=== PATIENT | female | born 1940 | race Caucasian/White ===

== ENCOUNTER 2021-08-13 09:12 | Inpatient (IN) ==
[2021-08-13] MEDS ORDERED: 0.9 % SODIUM CHLORIDE 1,000 ML IV ONE (09:20)
[2021-08-13] MEDS ORDERED: ACETAMINOPHEN 500 MG TABLET PO ONE (09:20)
--- NOTE | 2021-08-13 09:23 | Emergency Department Note ---
Fever HPI General Chief Complaint: Fever Stated Complaint: fever Time Seen by Provider: 08/13/21 09:19 Source: patient and EMS Mode of arrival: EMS Limitations: no limitations History of Present Illness HPI Narrative: Patient is 80-year-old lady arrives emergency department by ambulance complaining of generalized malaise. Patient says she has been feeling fatigued and rundown for the past 24 hours. She has been having nausea and vomiting. She is also been coughing and feeling short of breath. She notes that she has been having urinary frequency without any dysuria. She started feeling even more weak this morning so she called 911. Paramedics arrived and found her to be hypoxemic with oxygen saturation in the mid 80s on room air. They applied supplemental oxygen started an IV and brought her to the. Nothing seems to make her symptoms any better or worse. The patient has been fully vaccinated against COVID-19. Related Data Home Medications Medication Instructions Recorded Confirmed acetylcysteine 600 mg capsule See Rx Instructions PO .[facility] 04/28/20 04/28/20 amlodipine 10 mg tablet See Rx Instructions PO .04/28/20 04/28/20 ascorbic acid (vitamin C) 1,000 mg See Rx Instructions PO .04/28/20 04/28/20 tablet aspirin 81 mg tablet,delayed See Rx Instructions PO .04/28/20 04/28/20 release biotin 5,000 mcg disintegrating See Rx Instructions PO .04/28/20 04/28/20 tablet furosemide 40 mg tablet See Rx Instructions PO .COMPLEX 04/28/20 04/28/20 Days tab glipizide 5 mg tablet See Rx Instructions PO .04/28/20 04/28/20 Days tab losartan 50 mg tablet See Rx Instructions PO .COMPLEX 04/28/20 04/28/20 Days tab lovastatin 40 mg tablet See Rx Instructions PO .COMPLEX 04/28/20 04/28/20 Days tab metformin 1,000 mg tablet See Rx Instructions PO .04/28/20 04/28/20 Days tab metoprolol tartrate 25 mg tablet See Rx Instructions PO .COMPLEX 04/28/20 04/28/20 multivitamin See Rx Instructions PO .COMPLEX 04/28/20 04/28/20 oxybutynin chloride 15 mg See Rx Instructions PO .04/28/20 04/28/20 tablet,extended release 24 hr Days tab ranitidine HCl 300 mg tablet See Rx Instructions PO .COMPLEX 90 04/28/20 04/28/20 Days tab sertraline 100 mg tablet See Rx Instructions PO .COMPLEX 90 04/28/20 04/28/20 Days tab Lantus Solostar U-100 Insulin 22 unit INTRADERMAL QHS 08/13/21 08/13/21 Previous Rx's Medication Instructions Recorded meloxicam 7.5 mg tablet 7.5 mg PO BID PRN #60 tab 06/03/18 Allergies Allergy/AdvReac Type Severity Reaction Status Date / Time lisinopril AdvReac Intermediate Cough Verified 11/01/18 10:59 Review of Systems ROS ROS Narrative: Narrative: All systems ED: reviewed and negative except as stated. 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 use of non-steroidal anti-inflammatories (NSAID) (Chronic) Abnormal immunological finding in serum (Chronic) Left foot pain (Chronic) Carpal tunnel syndrome, right (Acute) Carpal tunnel syndrome, left (Acute) Cataract (Acute) Knee joint replacement status (Acute) Cholecystectomy planned (Acute) Actinic keratosis (Chronic) Heart murmur, systolic (Chronic) Osteoarthrosis (Chronic) Obesity (Chronic) Anemia (Chronic) Insomnia (Chronic) Chronic depression (Chronic) GERD (gastroesophageal reflux disease) (Chronic) Urge incontinence (Chronic) Hyperlipidemia (Chronic) Diabetes mellitus, type II (Chronic) Hypertension, essential (Chronic) Memory loss (Chronic) History of basal cell carcinoma (Chronic) Hemangioma (Chronic) Benign neoplasm of skin (Chronic) Scar (Chronic) Medical History Abnormal immunological finding in serum Actinic keratosis Anemia Back pain Benign neoplasm of skin Carpal tunnel syndrome, left Carpal tunnel syndrome, right Cataract Cholecystectomy planned Chronic depression Chronic pain Diabetes mellitus, type II Facet arthropathy GERD (gastroesophageal reflux disease) Heart murmur, systolic Hemangioma History of basal cell carcinoma Hyperlipidemia Hypertension, essential Insomnia 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 L3-S1 w/sed 03/25/2020 MBB #2 Antony. L3-S1 w/sed 02/26/2020 MBB #1 Bilat L3-S1 w/sed 02/05/20 Knee joint replacement status Social History Smoking Status: Never smoker Alcohol Intake Frequency: does not drink Substance Use: does not use Exam Narrative Narrative: I reviewed the vital signs. Gen -patient is awake and alert and appears somewhat uncomfortable. She is experiencing rigors.. The patient is well groomed. HEENT -head is atraumatic. There is no conjunctival pallor or scleral icterus. Mucous membranes are dry. CV -S1-S2 regular rate and rhythm. Peripheral pulses are palpable. There is no JVD. Resp -breathing is nonlabored. Lungs are clear to auscultation bilaterally. There is no cyanosis. GI - Abdomen is soft and nontender to palpation. There is no guarding or rebound tenderness. Derm -skin is warm and dry. There is no visible rash. MSK -present extremities are atraumatic. Psych -patient has appropriate affect. The patient does not appear internally stimulated. Neuro -patient answers questions appropriately with fluent speech. Patient moves all present extremities equally. General Limitations: no limitations Course Vital Signs Vital signs: Vital Signs Temperature 102.9 F H 08/13/21 09:13 Pulse Rate 110 H 08/13/21 09:13 Respiratory Rate 24 H 08/13/21 09:13 Blood Pressure 157/78 08/13/21 09:13 Pulse Oximetry (%) 94 08/13/21 09:13 Temperature 100.1 F H 08/13/21 11:55 Pulse Rate 93 H 08/13/21 12:15 Respiratory Rate 24 H 08/13/21 09:13 Blood Pressure 114/59 08/13/21 12:01 Pulse Oximetry (%) 96 08/13/21 12:15 MDM MDM Narrative Medical decision making narrative: Presents with a fever nausea and shortness of breath. Abdominal examination is not suggestive of surgical intra-abdominal pathology and the patient denies any abdominal pain. Chest x-ray does reveal bilateral interstitial infiltrates. Patient's labs remarkable for leukocytosis without significant electrolyte derangements. Her symptoms significantly impro yareli after she received antipyretics and IV fluids in the emergency department. I discussed the test results and my clinical impression with the patient and her family. Given her new oxygen requirement I recommended admission and she is agreeable. I discussed the patient's history examination and diagnostic findings with Dr. Enamorado, who agrees with the plan of care and accepts admission. Critical care time I provided 35 minutes of critical care time. This was in addition to any separately billable procedures. The patient was given supplemental oxygen to treat her hypoxemic respiratory failure. She was given IV fluids to treat her sepsis and dehydration and was given IV antibiotics to treat her pneumonia and sepsis.. The patient was closely monitored for response to treatment and stability of vital signs throughout their emergency department stay. Lab Data Lab results reviewed: Yes I reviewed the patient's lab results. Result diagrams: 08/13/21 09:33 08/13/21 09:33 Labs: Lab Results 08/13/21 08/13/21 08/13/21 Range/Units 09:33 09:33 09:33 WBC 14.9 H (4.5-11.0) K/mcL RBC 3.82 (3.59-5.38) M/mcL Hgb 11.9 (11.2-15.7) g/dL Hct 36.4 (34.1-44.9) % MCV 95.3 (80.0-100.0) fL MCH 31.2 (26.0-34.0) pg MCHC 32.7 (31.0-36.0) g/dL RDW 13.0 (11.5-14.5) % Plt Count 166 (140-440) K/mcL MPV 9.8 (7.4-10.4) fL Neut % (Auto) 91.4 H (38.0-78.0) % Lymph % (Auto) 2.7 L (15.5-49.0) % [place] % (Auto) 4.4 (1.0-12.0) % Eos % (Auto) 1.2 (0.0-7.0) % Baso % (Auto) 0.3 (0.0-2.0) % Lymph # (Auto) 0.40 L (1.50-4.80) K/mcL [place] # (Auto) 0.65 (0.10-0.90) K/mcL Eos # (Auto) 0.18 (0.00-0.70) K/mcL Baso # (Auto) 0.04 (0.00-0.30) K/mcL Absolute Neutrophils 13.65 H (1.80-8.00) K/mcL VBG Lactic Acid 1.1 (0.5-2.0) mmol/L Sodium 135 (133-145) mmol/L Potassium 4.4 (3.3-5.1) mmol/L Chloride 98 (96-108) mmol/L Carbon Dioxide 23 (22-30) mmol/L Anion Gap 14.0 (8.0-16.0) BUN 20 (8-23) mg/dL Creatinine 0.7 (0.6-1.1) mg/dL GFR Calculation 83 Glucose 166 H (70-105) mg/dL Calcium 9.9 (8.6-10.4) mg/dL Total Bilirubin 0.7 (0.1-1.0) mg/dL AST 31 (<32) U/L ALT 24 (<40) U/L Alkaline Phosphatase 111 (39-117) U/L Total Protein 7.3 (5.9-8.4) gm/dL Albumin 4.2 (3.2-5.2) gm/dL Globulin 3.1 (2.2-3.7) gm/dL Albumin/Globulin Ratio 1.4 (1.0-2.3) Urine Color Urine Appearance (Clear) Urine pH (5.0-9.0) Ur Specific Rule (1.000-1.035) Urine Protein (Negative) mg/dL Urine Glucose (UA) (Negative) mg/dL Urine Ketones (Negative) mg/dL Urine Occult Blood (Negative) mg/dL Urine Nitrate (Negative) Urine Bilirubin (Negative) mg/dL Urine Urobilinogen mg/dL Ur Leukocyte Esterase (Negative) /uL Urine RBC (0-3) /hpf Urine WBC (0-4) /hpf Ur Squamous Epith Cells (0-4) /hpf Urine Bacteria (0) /hpf Urine Mucus (None) /hpf Ur Culture Indicated? 08/13/21 Range/Units 10:24 WBC (4.5-11.0) K/mcL RBC (3.59-5.38) M/mcL Hgb (11.2-15.7) g/dL Hct (34.1-44.9) % MCV (80.0-100.0) fL MCH (26.0-34.0) pg MCHC (31.0-36.0) g/dL RDW (11.5-14.5) % Plt Count (140-440) K/mcL MPV (7.4-10.4) fL Neut % (Auto) (38.0-78.0) % Lymph % (Auto) (15.5-49.0) % [place] % (Auto) (1.0-12.0) % Eos % (Auto) (0.0-7.0) % Baso % (Auto) (0.0-2.0) % Lymph # (Auto) (1.50-4.80) K/mcL [place] # (Auto) (0.10-0.90) K/mcL Eos # (Auto) (0.00-0.70) K/mcL Baso # (Auto) (0.00-0.30) K/mcL Absolute Neutrophils (1.80-8.00) K/mcL VBG Lactic Acid (0.5-2.0) mmol/L Sodium (133-145) mmol/L Potassium (3.3-5.1) mmol/L Chloride (96-108) mmol/L Carbon Dioxide (22-30) mmol/L Anion Gap (8.0-16.0) BUN (8-23) mg/dL Creatinine (0.6-1.1) mg/dL GFR Calculation Glucose (70-105) mg/dL Calcium (8.6-10.4) mg/dL Total Bilirubin (0.1-1.0) mg/dL AST (<32) U/L ALT (<40) U/L Alkaline Phosphatase (39-117) U/L Total Protein (5.9-8.4) gm/dL Albumin (3.2-5.2) gm/dL Globulin (2.2-3.7) gm/dL Albumin/Globulin Ratio (1.0-2.3) Urine Color Straw Urine Appearance Clear (Clear) Urine pH 7.0 (5.0-9.0) Ur Specific Rule 1.009 (1.000-1.035) Urine Protein Negative (Negative) mg/dL Urine Glucose (UA) Negative (Negative) mg/dL Urine Ketones Negative (Negative) mg/dL Urine Occult Blood Negative (Negative) mg/dL Urine Nitrate Negative (Negative) Urine Bilirubin Negative (Negative) mg/dL Urine Urobilinogen Negative mg/dL Ur Leukocyte Esterase Negative (Negative) /uL Urine RBC 2 (0-3) /hpf Urine WBC 1 (0-4) /hpf Ur Squamous Epith Cells < 1 (0-4) /hpf Urine Bacteria None (0) /hpf Urine Mucus Few A (None) /hpf Ur Culture Indicated? 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: No Clinical Impression: Pneumonia, Acute hypoxemic respiratory failure Patient Disposition: Xfer As Inpt ([facility]) Condition: Fair Follow up with: Jessy Ahn MD [Primary Care Provider] - Prescriptions: No Action meloxicam 7.5 mg tablet 7.5 mg PO BID PRN (Reason: pain) Qty: 60 RF: 3 amlodipine 10 mg tablet See Rx Instructions PO .COMPLEX RF: 0 aspirin 81 mg tablet,delayed release (DR/EC) See Rx Instructions PO .COMPLEX RF: 0 biotin 5,000 mcg tablet,disintegrating See Rx Instructions PO .COMPLEX RF: 0 ascorbic acid (vitamin C) 1,000 mg tablet See Rx Instructions PO .COMPLEX RF: 0 multivitamin Tablet See Rx Instructions PO .COMPLEX RF: 0 acetylcysteine [NAC] 600 mg capsule See Rx Instructions PO .COMPLEX RF: 0 glipizide 5 mg tablet See Rx Instructions PO .COMPLEX 90 Days RF: 0 metformin 1,000 mg tablet See Rx Instructions PO .COMPLEX 90 Days RF: 0 oxybutynin chloride 15 mg tablet extended release 24hr See Rx Instructions PO .COMPLEX 90 Days RF: 0 sertraline 100 mg tablet See Rx Instructions PO .COMPLEX 90 Days RF: 0 losartan 50 mg tablet See Rx Instructions PO .COMPLEX 90 Days RF: 0 furosemide 40 mg tablet See Rx Instructions PO .COMPLEX 90 Days RF: 0 lovastatin 40 mg tablet See Rx Instructions PO .COMPLEX 90 Days RF: 0 ranitidine HCl 300 mg tablet See Rx Instructions PO .COMPLEX 90 Days RF: 0 metoprolol tartrate 25 mg tablet See Rx Instructions PO .COMPLEX RF: 0 Lantus Solostar U-100 Insulin 22 unit intradermal QHS RF: 0
--- NOTE | 2021-08-13 10:41 | XRay Report ---
INDICATION: pneumonia. Fever TECHNIQUE: AP portable upright chest x-ray COMPARISON: Previous chest x-ray dated 11/24/2017 FINDINGS:Previous median sternotomy. 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 Appearance is consistent with interstitial edema. There is no parenchymal consolidation. Heart, vascular:There is cardiomegaly. Mediastinum, zia:No mediastinal widening. No hilar mass Pleura:No definite pleural effusion identified on this AP upright radiograph Skeletal:Negative. IMPRESSION: 1. Cardiomegaly and probable interstitial pulmonary edema 2. No focal pulmonary parenchymal consolidation Interpreted and Authenticated by: Guero Orourke 08/13/21
[2021-08-13 10:47] LABS: Basophils # (Auto) 0.04 K/mcL (0.00-0.30); Basophils % (Auto) 0.3 % (0.0-2.0); Eosinophils # (Auto) 0.18 K/mcL (0.00-0.70); Eosinophils % (Auto) 1.2 % (0.0-7.0); Hematocrit 36.4 % (34.1-44.9); Hemoglobin 11.9 g/dL (11.2-15.7); Lymphocytes % (Auto) 2.7 % (15.5-49.0); Mean Cell Volume 95.3 fL (80.0-100.0); Mean Corpuscular HGB Conc 32.7 g/dL (31.0-36.0); Mean Platelet Volume 9.8 fL (7.4-10.4); Monocytes # (Auto) 0.65 K/mcL (0.10-0.90); Monocytes % (Auto) 4.4 % (1.0-12.0); Neutrophils % (Auto) 91.4 % (38.0-78.0); Platelet Count 166 K/mcL (140-440); RBC 3.82 M/mcL (3.59-5.38); WBC 14.9 K/mcL (4.5-11.0)
[2021-08-13 11:03] LABS: Appearance,Urine CLEAR (Clear); Bilirubin,Urine Negative (Negative); Color,Urine STRAW; Culture Indicated,Urine No; Glucose,Urine (UA) Negative (Negative); Ketones,Urine Negative (Negative); Leukocyte Esterase,Urine Negative /uL (Negative); Mucus,Urine FEW /hpf; Nitrate,Urine Negative (Negative); Protein,Urine Negative (Negative); Specific Gravity,Urine 1.009 (1.000-1.035); Urine Blood Negative (Negative); Urine RBC 2 /hpf (0-3); Urine Squamous Epithelial Cell < 1 /hpf (0-4); Urine WBC 1 /hpf (0-4); Urobilinogen,Urine Negative
[2021-08-13 11:04] LABS: ALT/SGPT 24 U/L (<40); AST/SGOT 31 U/L (<32); Albumin 4.2 gm/dL (3.2-5.2); Albumin/Globulin Ratio 1.4 (1.0-2.3); Alkaline Phosphatase 111 U/L (39-117); Bilirubin,Total 0.7 mg/dL (0.1-1.0); Blood Urea Nitrogen 20 mg/dL (8-23); Calcium 9.9 mg/dL (8.6-10.4); Carbon Dioxide 23 mmol/L (22-30); Chloride 98 mmol/L (96-108); Globulin 3.1 gm/dL (2.2-3.7); Glomerular Filtration Rate 83; Glucose 166 mg/dL (70-105)
[2021-08-13] MEDS ORDERED: DOXYCYCLINE 100 MG in DEXTROSE 5% IN WATER 100 ML IV ONE (11:25)
[2021-08-13] MEDS ORDERED: cefTRIAXone 1 GM VIAL IV ONE ×2 (11:25→14:30)
--- NOTE | 2021-08-13 12:53 | Internal Med History&Physical ---
HPI History of Present Illness Patient information: Note initiated : 08/13/21 at 12:48 pm Service Date, if different from initiated Date: [] Patient: Kandi Juares a 80 y/o F admitted on for fever. Chief Complaint: [] History of present illness: Ms. Juares is a 80 year old F Presents to the hospital with fevers chills weakness shortness of breath. She was found to be satting in the mid 80s by EMS. Patient is on she started developing fevers and chills becoming more weak. She denies any cough but started to feel short of breath. She had some nausea and retching today. A granddaughter she was exposed to was recently found to have RSV infection. She has been vaccinated against Covid and has received a booster several weeks ago. Review of Systems: Pertinent positives as above. Denies headache/vomiting/chest or abdominal pain/diarrhea. Remaining 10 point review of system reviewed negative PFSH PFSH All Active Problems (Updated 08/13/21 @ 12:29 by Nikhil Taylor DO) Pneumonia (Acute) Acute hypoxemic respiratory failure (Acute) History of surgery (Acute) Chronic pain (Acute) Facet arthropathy (Acute) Spinal stenosis, lumbar region without neurogenic claudication (Acute) Low back pain (Acute) Spondylosis without myelopathy or radiculopathy, lumbar region (Acute) Spondylosis without myelopathy or radiculopathy, lumbosacral region (Acute) Back pain (Acute) prison current use of non-steroidal anti-inflammatories (NSAID) (Chronic) Abnormal immunological finding in serum (Chronic) Left foot pain (Chronic) Carpal tunnel syndrome, right (Acute) Carpal tunnel syndrome, left (Acute) Cataract (Acute) Knee joint replacement status (Acute) Cholecystectomy planned (Acute) Actinic keratosis (Chronic) Heart murmur, systolic (Chronic) Osteoarthrosis (Chronic) Obesity (Chronic) Anemia (Chronic) Insomnia (Chronic) Chronic depression (Chronic) GERD (gastroesophageal reflux disease) (Chronic) Urge incontinence (Chronic) Hyperlipidemia (Chronic) Diabetes mellitus, type II (Chronic) Hypertension, essential (Chronic) Memory loss (Chronic) History of basal cell carcinoma (Chronic) Hemangioma (Chronic) Benign neoplasm of skin (Chronic) Scar (Chronic) Medical History Abnormal immunological finding in serum Actinic keratosis Anemia Back pain Benign neoplasm of skin Carpal tunnel syndrome, left Carpal tunnel syndrome, right Cataract Cholecystectomy planned Chronic depression Chronic pain Diabetes mellitus, type II Facet arthropathy GERD (gastroesophageal reflux disease) Heart murmur, systolic Hemangioma History of basal cell carcinoma Hyperlipidemia Hypertension, essential Insomnia Left foot pain prison current use of non-steroidal anti-inflammatories (NSAID) Low back pain Memory loss Obesity Osteoarthrosis Scar Spinal stenosis, 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 L3-S1 w/sed 03/25/2020 MBB #2 Antony. L3-S1 w/sed 02/26/2020 MBB #1 Bilat L3-S1 w/sed 02/05/20 Knee joint replacement status Social History (Updated 11/01/18 @ 12:09 by TOMMIE Lundberg) household members: spouse housing: house lives independently: Yes marital status: pets and animals: Yes alcohol intake frequency: does not drink substance use type: does not use MEDS/ALLERGIES Home Medications and Allergies Home Medications Medication Instructions Recorded Confirmed Type meloxicam 7.5 mg tablet 7.5 mg PO BID PRN #60 tab 06/03/18 11/01/18 Rx acetylcysteine 600 mg capsule See Rx Instructions PO .COMPLEX 04/28/20 04/28/20 History amlodipine 10 mg tablet See Rx Instructions PO .COMPLEX 04/28/20 04/28/20 History ascorbic acid (vitamin C) 1,000 mg See Rx Instructions PO .COMPLEX 04/28/20 04/28/20 History tablet aspirin 81 mg tablet,delayed See Rx Instructions PO .COMPLEX 04/28/20 04/28/20 History release biotin 5,000 mcg disintegrating See Rx Instructions PO .COMPLEX 04/28/20 04/28/20 History tablet furosemide 40 mg tablet See Rx Instructions PO .COMPLEX 90 04/28/20 04/28/20 History Days tab glipizide 5 mg tablet See Rx Instructions PO .COMPLEX 90 04/28/20 04/28/20 History Days tab losartan 50 mg tablet See Rx Instructions PO .COMPLEX 04/28/20 04/28/20 History Days tab lovastatin 40 mg tablet See Rx Instructions PO .COMPLEX 04/28/20 04/28/20 History Days tab metformin 1,000 mg tablet See Rx Instructions PO .COMPLEX 04/28/20 04/28/20 History Days tab metoprolol tartrate 25 mg tablet See Rx Instructions PO .COMPLEX 04/28/20 04/28/20 History multivitamin See Rx Instructions PO .COMPLEX 04/28/20 04/28/20 History oxybutynin chloride 15 mg See Rx Instructions PO .COMPLEX 04/28/20 04/28/20 History tablet,extended release 24 hr Days tab ranitidine HCl 300 mg tablet See Rx Instructions PO .COMPLEX 04/28/20 04/28/20 History Days tab sertraline 100 mg tablet See Rx Instructions PO .COMPLEX 04/28/20 04/28/20 History Days tab Lantus Solostar U-100 Insulin 22 unit INTRADERMAL QHS 08/13/21 08/13/21 History Allergies Allergy/AdvReac Type Severity Reaction Status Date / Time lisinopril AdvReac Intermediate Cough Verified 11/01/18 10:59 EXAM Constitutional Vitals: Temp Pulse Resp BP Pulse Ox 100.1 F H 94 H 24 H 112/60 96 08/13/21 11:55 08/13/21 12:48 08/13/21 09:13 08/13/21 12:31 08/13/21 12:48 Exam: General: Alert, Awake, No acute Distress Eyes/N/T: EOMI, PERRL, Head/Neck: neck supple, normocephalic atraumatic CV: RRR, 3/6 SM, normal s1/s2 Pulm: Fine rales b/l, no wheezing Abd: soft, nontender, +BS x4 Ext: no clubbing/cyanosis/edema Neuro: Alert, no focal deficits, moves all extremities, CN 2-12 grossly intact, symmetrical strength b/l upper/lower, sensations intact b/l upper/lower Skin: warm/dry DATA Data Completed and Pending Labs: Labs from last 24 hours 08/13/21 08/13/21 08/13/21 10:24 09:33 09:33 WBC RBC Hgb Hct MCV MCH MCHC RDW Plt Count MPV Neut % (Auto) Lymph % (Auto) [place] % (Auto) Eos % (Auto) Baso % (Auto) Lymph # (Auto) [place] # (Auto) Eos # (Auto) Baso # (Auto) Absolute Neutrophils D-Dimer VBG Lactic Acid Sodium Potassium Chloride Carbon Dioxide Anion Gap BUN Creatinine GFR Calculation Glucose Calcium Total Bilirubin AST ALT Alkaline Phosphatase C-Reactive Protein Pending NT-Pro-B Natriuret Pep Pending Total Protein Albumin Globulin Albumin/Globulin Ratio Procalcitonin Pending Urine Color Straw Urine Appearance Clear Urine pH 7.0 Ur Specific [place] 1.009 Urine Protein Negative Urine Glucose (UA) Negative Urine Ketones Negative Urine Occult Blood Negative Urine Nitrate Negative Urine Bilirubin Negative Urine Urobilinogen Negative Ur Leukocyte Esterase Negative Urine RBC 2 Urine WBC 1 Ur Squamous Epith Cells < 1 Urine Bacteria None Urine Mucus Few A Ur Culture Indicated? No 08/13/21 08/13/21 08/13/21 09:33 09:33 09:33 WBC RBC Hgb Hct MCV MCH MCHC RDW Plt Count MPV Neut % (Auto) Lymph % (Auto) [place] % (Auto) Eos % (Auto) Baso % (Auto) Lymph # (Auto) [place] # (Auto) Eos # (Auto) Baso # (Auto) Absolute Neutrophils D-Dimer Pending VBG Lactic Acid 1.1 Sodium 135 Potassium 4.4 Chloride 98 Carbon Dioxide 23 Anion Gap 14.0 BUN 20 Creatinine 0.7 GFR Calculation 83 Glucose 166 H Calcium 9.9 Total Bilirubin 0.7 AST 31 ALT 24 Alkaline Phosphatase 111 C-Reactive Protein NT-Pro-B Natriuret Pep Total Protein 7.3 Albumin 4.2 Globulin 3.1 Albumin/Globulin Ratio 1.4 Procalcitonin Urine Color Urine Appearance Urine pH Ur Specific [place] Urine Protein Urine Glucose (UA) Urine Ketones Urine Occult Blood Urine Nitrate Urine Bilirubin Urine Urobilinogen Ur Leukocyte Esterase Urine RBC Urine WBC Ur Squamous Epith Cells Urine Bacteria Urine Mucus Ur Culture Indicated? 08/13/21 09:33 WBC 14.9 H RBC 3.82 Hgb 11.9 Hct 36.4 MCV 95.3 MCH 31.2 MCHC 32.7 RDW 13.0 Plt Count 166 MPV 9.8 Neut % (Auto) 91.4 H Lymph % (Auto) 2.7 L [place] % (Auto) 4.4 Eos % (Auto) 1.2 Baso % (Auto) 0.3 Lymph # (Auto) 0.40 L [place] # (Auto) 0.65 Eos # (Auto) 0.18 Baso # (Auto) 0.04 Absolute Neutrophils 13.65 H D-Dimer VBG Lactic Acid Sodium Potassium Chloride Carbon Dioxide Anion Gap BUN Creatinine GFR Calculation Glucose Calcium Total Bilirubin AST ALT Alkaline Phosphatase C-Reactive Protein NT-Pro-B Natriuret Pep Total Protein Albumin Globulin Albumin/Globulin Ratio Procalcitonin Urine Color Urine Appearance Urine pH Ur Specific [place] Urine Protein Urine Glucose (UA) Urine Ketones Urine Occult Blood Urine Nitrate Urine Bilirubin Urine Urobilinogen Ur Leukocyte Esterase Urine RBC Urine WBC Ur Squamous Epith Cells Urine Bacteria Urine Mucus Ur Culture Indicated? A/P Narrative A/P Narrative: A: *Acute hypoxic respiratory failure: PNA +/- -on 3L NC *PNA (atypical vs viral): *ARTEM w/cpap: *HTN/HLD: *Depression: * P: -Rocephin/Azithro -rvp/myco/strep -IS/Acapella, prn Nebs -O2 supp and wean as able -Home CPAP - -PT/OT -ppx: Lovenox Full code Time Spent With Patient Time: Total time spent is greater than 50% in coordination of care (as documented) at patient's floor/unit and/or counseling patient:
[2021-08-13 12:54] LABS: proBNP 502.9 pg/mL (<450.0)
[2021-08-13] MEDS ORDERED: ACETAMINOPHEN 325 MG TABLET PO PRN (14:25)
[2021-08-13] MEDS ORDERED: SENNOSIDES 1 TABLET PO PRN (14:25)
[2021-08-13] MEDS ORDERED: IPRATROPIUM/ALBUTEROL 3 ML AMPUL.NEB NEB PRN (14:25)
[2021-08-13] MEDS ORDERED: POLYETHYLENE GLYCOL 3350 17 GM PACKET PO PRN (14:25)
[2021-08-13] MEDS ORDERED: DEXTROSE 31 GM ORAL.SUSP PO PRN (14:25)
[2021-08-13] MEDS ORDERED: POTASSIUM CHLORIDE 20 MEQ TABLET PO PRN ×2 (14:25)
[2021-08-13] MEDS ORDERED: MAGNESIUM SULFATE 2 GM/50 ML BAG IV PRN (14:25)
[2021-08-13] MEDS ORDERED: POTASSIUM CHLORIDE 40 MEQ in DEXTROSE 5% IN WATER 500 ML IV PRN (14:25)
[2021-08-13] MEDS ORDERED: ONDANSETRON 4 MG/2 ML VIAL IV PRN (14:25)
[2021-08-13] MEDS ORDERED: METOCLOPRAMIDE 10 MG/2 ML VIAL IV PRN (14:25)
[2021-08-13] MEDS ORDERED: DEXTROSE 50% 50 ML VIAL IV PRN (14:25)
--- NOTE | 2021-08-13 15:48 | Cat Scan Report ---
INDICATION: hypoxia, elevated ddimer COMPARISON: Chest x-ray dated 08/13/2021 TECHNIQUE: Axial images obtained through the chest. 80ml Isovue 370 injected intravenously, and scanning was performed during pulmonary arterial phase. Sagittally and coronally reformatted images were obtained. MIP reformatted images. FINDINGS: Lungs:Diffuse groundglass infiltrates consistent with interstitial pulmonary edema. No focal pulmonary parenchymal mass or consolidation. There is no honeycombing. No bronchiectasis.. Mediastinum, vascular:Main pulmonary artery, right pulmonary artery, left pulmonary artery are negative. No intraluminal filling defects. No lobar, segmental, or subsegmental emboli. Thoracic aorta is negative. No aneurysmal dilatation. There is a prosthetic aortic valve Main pulmonary artery measures 3.3 cm in cross-sectional diameter. This is enlarged and suggestive of pulmonary arterial hypertension. No pathologic mediastinal or hilar adenopathy Heart:Mild cardiomegaly. No pericardial effusion. There is prominent coronary artery calcification. No reflux of contrast material into the inferior vena cava or hepatic veins Pleura:No significant pleural effusion. No pleural mass or calcification Axilla, supraclavicular regions, chest wall:No pathologic axillary or supraclavicular adenopathy. Musculoskeletal:Negative thoracic spine. No compression fracture. No lytic lesion. No rib or sternal lesions Upper Abdomen:Negative IMPRESSION: 1. Negative pulmonary CTA. No pulmonary embolism 2. Diffuse groundglass infiltrates. This is probably secondary to interstitial edema 3. Enlarged main pulmonary artery consistent with pulmonary arterial hypertension 4. Replaced aortic valve 5. Coronary artery calcification The exam was performed using radiation dose optimization techniques including, but not limited to, automated exposure control, adjustment of the mA and/or kV according to patient size and use of iterative reconstruction technique. Interpreted and Authenticated by: Guero Orourke 08/13/21
[2021-08-13] MEDS: AZITHROMYCIN 500 MG in DEXTROSE 5% IN WATER 250 ML IV SCH (15:56)
[2021-08-13] MEDS: 0.9 % SODIUM CHLORIDE 10 ML SYRINGE IV SCH ×2 (16:05→20:47)
[2021-08-13] MEDS ORDERED: FUROSEMIDE 20 MG/2 ML VIAL IV ONE ×2 (16:40→17:15)
[2021-08-13] MEDS ORDERED: FUROSEMIDE 40 MG TABLET PO SCH (16:45)
[2021-08-13] MEDS: INSULIN LISPRO 1 UNIT/0.01 ML UNIT SQ SCH ×2 (17:15→20:11)
[2021-08-13] MEDS: DOCUSATE SODIUM 100 MG CAPSULE PO SCH (20:08)
[2021-08-13] MEDS: OXYBUTYNIN CHLORIDE 5 MG TAB.XL.24H PO SCH (20:09)
[2021-08-13] MEDS: glipiZIDE 5 MG TABLET PO SCH (20:10)
[2021-08-13] MEDS: amLODIPine 10 MG TABLET PO SCH (20:10)
[2021-08-13] MEDS: SERTRALINE 100 MG TABLET PO SCH (20:10)
[2021-08-13] MEDS: INSULIN GLARGINE, HUMAN 1 UNIT/0.01 ML SQ SCH (20:12)
[2021-08-13] MEDS ORDERED: VANCOMYCIN 1,500 MG in 0.9 % SODIUM CHLORIDE 500 ML IV ONE (23:02)
[2021-08-14] MEDS: 0.9 % SODIUM CHLORIDE 10 ML SYRINGE IV SCH ×3 (05:37→20:02)
[2021-08-14] MEDS: INSULIN LISPRO 1 UNIT/0.01 ML UNIT SQ SCH ×4 (07:01→20:01)
[2021-08-14] MEDS: glipiZIDE 5 MG TABLET PO SCH (07:01)
[2021-08-14 07:14] LABS: ALT/SGPT 28 U/L (<40); AST/SGOT 41 U/L (<32); Albumin 3.4 gm/dL (3.2-5.2); Albumin/Globulin Ratio 1.4 (1.0-2.3); Alkaline Phosphatase 66 U/L (39-117); Bilirubin,Direct < 0.2 mg/dL (0-0.3); Bilirubin,Total 0.5 mg/dL (0.1-1.0); Blood Urea Nitrogen 19 mg/dL (8-23); Calcium 9.3 mg/dL (8.6-10.4); Carbon Dioxide 24 mmol/L (22-30); Chloride 101 mmol/L (96-108); Globulin 2.5 gm/dL (2.2-3.7); Glomerular Filtration Rate 83; Glucose 102 mg/dL (70-105); Lactate Dehydrogenase 275 U/L (135-225); Phosphorous 2.7 mg/dL (2.5-4.5); Triglycerides 45 mg/dL (<150); Uric Acid 5.3 mg/dL (2.5-8.0)
[2021-08-14] MEDS ORDERED: FUROSEMIDE 40 MG/4 ML VIAL IV ONE (07:16)
--- NOTE | 2021-08-14 07:17 | Internal Med Progress Note ---
SUBJECTIVE Subjective Patient information: Note initiated : 08/14/21 at 7:04 am Service Date, if different from initiated Date: [] Patient: Kandi Juares a 80 y/o F admitted on 08/13/21 for fever. Chief Complaint: [] Interval history: History of present illness: Ms. Juares is a 80 year old F Presents to the hospital with fevers chills weakness shortness of breath. She was found to be satting in the mid 80s by EMS. Patient is on she started developing fevers and chills becoming more weak. She denies any cough but started to feel short of breath. She had some nausea and retching today. A granddaughter she was exposed to was recently found to have RSV infection. She has been vaccinated against Covid and has received a booster several weeks ago. 08/14 Patient states she is feeling much better today. All 4 bottles of blood cu ltures were positive for staph aureus. Vancomycin started. Echo pending. Source unknown, ?pulm. Very mild and very occasional dry cough. Shortness of breath much better Review of Systems: denies headache/fever/chills/nausea/vomiting/chest or abdominal pain/diarrhea. Otherwise see above. Constitutional Vitals: Vital Signs Temp Pulse Resp BP Pulse Ox 98.8 F 63 17 121/63 94 08/14/21 06:37 08/14/21 06:37 08/14/21 06:37 08/14/21 06:37 08/14/21 06:37 Period Temp Pulse Resp BP Sys/Mullins Pulse Ox Last 24 Hr 98.5 F-103.1 F 63-110 17-24 101-165/53-86 93-98 Intake and Output 08/13/21 08/14/21 08/14/21 22:59 05:59 13:59 Intake Total Output Total Balance Weight Intake & Output: Intake & Output 08/13/21 08/14/21 08/14/21 22:59 05:59 13:59 Intake Total Output Total Balance Weight Intake: IV Zithromax 500 mg In Dextrose 5% in Water 250 ml @ 250 mls/hr IV DAILY [facility] Rx#:[id number] Vancomycin 1,500 mg In Sodium Chloride 0.9% 500 ml @ 333.3 mls/hr IV ONCE ONE Rx#: [id number] Oral Output: Void Amount Other: Stool Size Stool Color Stool Consistency # Bowel Movements Exam: General: Alert, Awake, No acute Distress Eyes/N/T: EOMI, Head/Neck: neck supple, CV: RRR, 3/6 SM, Pulm: Fine bibasilar rales b/l, no wheezing Abd: soft, nontender, +BS x4 Ext: no clubbing/cyanosis/edema Neuro: Alert, no focal deficits, moves all extremities, Skin: warm/dry OBJ DATA Labs CBC & Chem 7: 08/14/21 05:24 08/14/21 05:24 Labs: Abnormal Lab Results 08/13/21 08/13/21 08/13/21 10:24 09:33 09:33 WBC Neut % (Auto) Lymph % (Auto) Lymph # (Auto) Absolute Neutrophils D-Dimer Glucose NT-Pro-B Natriuret Pep 502.9 H Procalcitonin 0.17 H Urine Mucus Few A 08/13/21 08/13/21 08/13/21 09:33 09:33 09:33 WBC 14.9 H Neut % (Auto) 91.4 H Lymph % (Auto) 2.7 L Lymph # (Auto) 0.40 L Absolute Neutrophils 13.65 H D-Dimer 1.79 H Glucose 166 H NT-Pro-B Natriuret Pep Procalcitonin Urine Mucus Meds: Medications Acetaminophen (Acetaminophen 325 Mg Tablet) 650 mg PO Q6HP PRN; Protocol PRN Reason: Per Pain Protocol/Fever > 101 Albuterol/Ipratropium (Ipratropium/Albuterol 3 Ml Ampul.Neb) 3 ml NEB Q4HP PRN PRN Reason: Shortness Of Breath Amlodipine Besylate (Amlodipine 10 Mg Tablet) 10 mg PO DAILY [facility] Last Admin: 08/13/21 20:10 Dose: 10 mg Documented by: Atorvastatin Calcium (Atorvastatin 40 Mg Tablet) 40 mg PO QAM [facility] Dextrose (Dextrose 50% 50 Ml Vial) 0 ml IV UD PRN PRN Reason: Hypoglycemia Diagnostic Test (Pha) (Accu-Chek 1 Each Strip) 1 each FS ACHS [facility] Last Admin: 08/14/21 07:01 Dose: 1 each Documented by: Docusate Sodium (Docusate Sodium 100 Mg Capsule) 100 mg PO BID [facility] Last Admin: 08/13/21 20:08 Dose: 100 mg Documented by: Enoxaparin Sodium (Enoxaparin 60 Mg/0.6 Ml Syringe) 60 mg SQ DAILY [facility] Furosemide (Furosemide 40 Mg Tablet) 0 mg PO .COMPLEX [facility] Glipizide (Glipizide 5 Mg Tablet) 5 mg PO ACB [facility] Last Admin: 08/14/21 07:01 Dose: 5 mg Documented by: Glucose (Dextrose 31 Gm Oral.Susp) 15 gm PO PRN PRN PRN Reason: Hypoglycemia Ceftriaxone Sodium 2 gm/ (Dextrose) 50 mls @ 100 mls/hr IV DAILY [facility]; Protocol Azithromycin 500 mg/ Dextrose 250 mls @ 250 mls/hr IV DAILY [facility]; Protocol Stop: 08/15/21 09:59 Last Infusion: 08/13/21 16:25 Dose: Infused Documented by: Potassium Chloride 40 meq/ (Dextrose) 520 mls @ 130 mls/hr IV UD PRN PRN Reason: Potassium < 3 Magnesium Sulfate (Magnesium Sulfate) 2 gm in 50 mls @ 50 mls/hr IV UD PRN PRN Reason: Magnesium </= 1.6 Vancomycin HCl 1,500 mg/ (Sodium Chloride) 500 mls @ 333.3 mls/hr IV ONCE ONE; Protocol Stop: 08/14/21 00:32 Last Infusion: 08/14/21 01:14 PDT Dose: Infused Documented by: Insulin Glargine (Insulin Glargine, Human 1 Unit/0.01 Ml) 22 unit SQ HS [facility] Last Admin: 08/13/21 20:12 Dose: 22 units Documented by: Insulin Human Lispro (Insulin Lispro 1 Unit/0.01 Ml Unit) 0 unit SQ ACHS [facility]; Protocol Last Admin: 08/14/21 07:01 Dose: Not Given Documented by: Losartan Potassium (Losartan 50 Mg Tablet) 100 mg PO QAM [facility] Metoclopramide HCl (Metoclopramide 10 Mg/2 Ml Vial) 10 mg IV Q6HP PRN PRN Reason: Nausea And Vomiting Ondansetron HCl (Ondansetron 4 Mg/2 Ml Vial) 4 mg IV Q4HP PRN PRN Reason: Nausea And Vomiting Oxybutynin Chloride (Oxybutynin Chloride 5 Mg Tab.Xl.24h) 15 mg PO DAILY [facility] Last Admin: 08/13/21 20:09 Dose: 15 mg Documented by: Polyethylene Glycol (Polyethylene Glycol 3350 17 Gm Packet) 17 gm PO DAILYP PRN PRN Reason: Constipation Potassium Chloride (Potassium Chloride 20 Meq Tablet) 40 meq PO UD PRN PRN Reason: Potssium is 3-3.5 Potassium Chloride (Potassium Chloride 20 Meq Tablet) 40 meq PO UD PRN PRN Reason: Potassium < 3 Senna (Sennosides 1 Tablet) 2 tab PO DAILYP PRN PRN Reason: Constipation Sertraline HCl (Sertraline 100 Mg Tablet) 100 mg PO DAILY [facility] Last Admin: 08/13/21 20:10 Dose: 100 mg Documented by: Sodium Chloride (0.9 % Sodium Chloride 10 Ml Syringe) 10 ml IV Q8 [facility] Last Admin: 08/14/21 05:37 Dose: 10 ml Documented by: Vancomycin HCl (Vancomycin Per Pharmacy) 1 order IV ONCE ONE; Protocol Stop: 08/14/21 09:01 A/P Narrative A/P Narrative: A: *Acute hypoxic respiratory failure: ?PNA vs chf -Imaging more consistent with pulm edema vs pna per rads, could be atypical PNA vs viral, no purulent coughing. BNP falsely low in obesity -on 2L NC *Bacteremia (Staph Aureus): ?source pulm (not convincing) vs other -leukocytosis improving *??PNA (atypical vs viral): Not convincing (not much of a cough. PCT/CRP low) -strep/RVP neg *h/o Aortic valve replacement: *ARTEM w/cpap: *HTN/HLD: *Depression: *Hypomag: P: -Vanco/Rocephin/Azithro, f/u BC's -echo -myco -IS/Acapella, prn Nebs -O2 supp and wean as able -Home CPAP - -PT/OT -ppx: Lovenox Full code Time Spent With Patient Time: Total time spent is greater than 50% in coordination of care (as documented) at patient's floor/unit and/or counseling patient: QUALITY VTE Deep Vein Thrombosis/Pulmonary Embolism Present on Admission: Yes
[2021-08-14 07:30] LABS: Hematocrit 30.2 % (34.1-44.9); Hemoglobin 10.2 g/dL (11.2-15.7); Mean Cell Volume 95.3 fL (80.0-100.0); Mean Corpuscular HGB Conc 33.8 g/dL (31.0-36.0); Mean Platelet Volume 10.1 fL (7.4-10.4); Platelet Count 125 K/mcL (140-440); RBC 3.17 M/mcL (3.59-5.38); Red Cell Distribution Width 13.2 % (11.5-14.5); WBC 12.4 K/mcL (4.5-11.0)
[2021-08-14] MEDS ORDERED: MAGNESIUM SULFATE 2 GM/50 ML BAG IV ONE (08:00)
[2021-08-14] MEDS: ATORVASTATIN 40 MG TABLET PO SCH (08:22)
[2021-08-14] MEDS: OXYBUTYNIN CHLORIDE 5 MG TAB.XL.24H PO SCH (08:22)
[2021-08-14] MEDS: ENOXAPARIN 60 MG/0.6 ML SYRINGE SQ SCH (08:22)
[2021-08-14] MEDS: LOSARTAN 50 MG TABLET PO SCH (08:22)
[2021-08-14] MEDS: amLODIPine 10 MG TABLET PO SCH (08:23)
[2021-08-14] MEDS: SERTRALINE 100 MG TABLET PO SCH (08:23)
[2021-08-14] MEDS: DOCUSATE SODIUM 100 MG CAPSULE PO SCH ×2 (08:23→20:01)
[2021-08-14 08:50] LABS: Lymphocytes % 5 % (15-49); Monocytes % (Manual) 2 % (1-12); Platelet Estimate DECREASED (Normal); RBC Morphology NORMAL (Normal); Segmented Neutrophils % 93 % (38-78)
[2021-08-14] MEDS ORDERED: GENTAMICIN SULFATE 210 MG in 0.9 % SODIUM CHLORIDE 250 ML IV SCH ×2 (09:00→11:00)
[2021-08-14] MEDS ORDERED: cefTRIAXone 2 GM in DEXTROSE 5% IN WATER 50 ML IV SCH (09:00)
[2021-08-14] MEDS ORDERED: VANCOMYCIN PER PHARMACY IV SCH (09:00)
[2021-08-14] MEDS ORDERED: GENTAMICIN PER PHARMACY IV ONE (09:30)
[2021-08-14] MEDS: AZITHROMYCIN 500 MG in DEXTROSE 5% IN WATER 250 ML IV SCH (09:39)
[2021-08-14] MEDS: VANCOMYCIN 1,500 MG in 0.9 % SODIUM CHLORIDE 500 ML IV SCH ×2 (09:40→21:22)
--- NOTE | 2021-08-14 17:09 | EKG ---
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
[2021-08-14] MEDS: INSULIN GLARGINE, HUMAN 1 UNIT/0.01 ML SQ SCH (20:01)
[2021-08-15] MEDS: 0.9 % SODIUM CHLORIDE 10 ML SYRINGE IV SCH ×2 (04:40→19:50)
[2021-08-15 06:46] LABS: Basophils # (Auto) 0.02 K/mcL (0.00-0.30); Basophils % (Auto) 0.2 % (0.0-2.0); Eosinophils # (Auto) 0.46 K/mcL (0.00-0.70); Eosinophils % (Auto) 5.2 % (0.0-7.0); Hematocrit 30.6 % (34.1-44.9); Hemoglobin 10.1 g/dL (11.2-15.7); Lymphocytes # (Auto) 0.82 K/mcL (1.50-4.80); Lymphocytes % (Auto) 9.3 % (15.5-49.0); Mean Cell Volume 97.1 fL (80.0-100.0); Mean Platelet Volume 10.2 fL (7.4-10.4); Monocytes # (Auto) 1.06 K/mcL (0.10-0.90); Neutrophils % (Auto) 73.3 % (38.0-78.0); Platelet Count 112 K/mcL (140-440); RBC 3.15 M/mcL (3.59-5.38); Red Cell Distribution Width 13.2 % (11.5-14.5); WBC 8.8 K/mcL (4.5-11.0)
[2021-08-15 07:09] LABS: ALT/SGPT 33 U/L (<40); AST/SGOT 46 U/L (<32); Albumin 3.1 gm/dL (3.2-5.2); Albumin/Globulin Ratio 1.1 (1.0-2.3); Alkaline Phosphatase 69 U/L (39-117); Bilirubin,Direct < 0.2 mg/dL (0-0.3); Bilirubin,Total 0.4 mg/dL (0.1-1.0); Blood Urea Nitrogen 17 mg/dL (8-23); Calcium 9.1 mg/dL (8.6-10.4); Carbon Dioxide 22 mmol/L (22-30); Chloride 102 mmol/L (96-108); Globulin 2.8 gm/dL (2.2-3.7); Glomerular Filtration Rate 87; Glucose 113 mg/dL (70-105); Lactate Dehydrogenase 325 U/L (135-225); Phosphorous 2.3 mg/dL (2.5-4.5); Triglycerides 74 mg/dL (<150)
[2021-08-15] MEDS ORDERED: ALBUMIN HUMAN 12.5 GM/50 ML BAG IV ONE (07:21)
[2021-08-15] MEDS ORDERED: FUROSEMIDE 40 MG/4 ML VIAL IV ONE (07:21)
[2021-08-15] MEDS ORDERED: MAGNESIUM SULFATE 24.36 MEQ in DEXTROSE 5% IN WATER 50 ML IV ONE (07:21)
[2021-08-15] MEDS: DOCUSATE SODIUM 100 MG CAPSULE PO SCH ×2 (07:23→19:37)
[2021-08-15] MEDS: INSULIN LISPRO 1 UNIT/0.01 ML UNIT SQ SCH ×4 (07:23→20:12)
--- NOTE | 2021-08-15 07:24 | Internal Med Progress Note ---
SUBJECTIVE Subjective Patient information: Note initiated : 08/15/21 at 7:15 am Service Date, if different from initiated Date: [] Patient: Kandi Juares 80 y/o F admitted on 08/13/21 for fever. Chief Complaint: [] Interval history: History of present illness: Ms. Juares is a 80 year old F Presents to the hospital with fevers chills weakness shortness of breath. She was found to be satting in the mid 80s by EMS. Patient is on she started developing fevers and chills becoming more weak. She denies any cough but started to feel short of breath. She had some nausea and retching today. A granddaughter she was exposed to was recently found to have RSV infection. She has been vaccinated against Covid and has received a booster several weeks ago. 08/14 Patient states she is feeling much better today. All 4 bottles of blood cu ltures were positive for staph aureus. Vancomycin started. Echo pending. Source unknown, ?pulm. Very mild and very occasional dry cough. Shortness of breath much better Given her bioprosthetic valve status and blood cultures 4/4 bottles growing staph aureus, will empirically treat for endocarditis until imaging studies return and repeat BC's. Thus, will include gentamicin to vancomycin. Per research, rifampin is recommended to start 3-5 days later give high mutation rate of bacterial gene controlling site of action, in attempt to decrease bacterial burden prior to start. Will discuss with ID once final sensitivities return and TTE results return. 08/15 Feeling well. Yesterday's blood cultures with 1 out of 4 positive. Patient is afebrile. Verbal report from senior officer states transthoracic echo poor study but did not see any obvious vegetations or evidence of. Leukocytosis resolved. Mag level low today and will replace. Surveillance blood cultures. Infectious disease consult over the phone with Areli recommended treating for 6 weeks of cefazolin and low-dose gentamicin for 2 weeks and rifampin for 6 weeks. We will schedule outpatient BIBI. Review of Systems: denies headache/fever/chills/nausea/vomiting/chest or abdominal pain/diarrhea. Otherwise see above. Constitutional Vitals: Vital Signs Temp Pulse Resp BP Pulse Ox 98.2 F 74 18 112/64 95 08/15/21 03:13 08/15/21 03:13 08/15/21 03:13 08/15/21 03:13 08/15/21 03:13 Period Temp Pulse Resp BP Sys/Mullins Pulse Ox Last 24 Hr 97.6 F-98.7 F 70-81 18-19 94-140/52-75 93-96 Intake and Output 08/14/21 08/15/21 08/15/21 21:59 05:59 13:59 Intake Total 600 700 Output Total 1150 400 Balance -550 300 Weight 100.108 kg Intake & Output: Intake & Output 08/14/21 08/15/21 08/15/21 21:59 05:59 13:59 Intake Total 600 700 Output Total 1150 400 Balance -550 300 Weight 100.108 kg Intake: IV 500 Vancomycin 1,500 mg In Sodium 500 Chloride 0.9% 500 ml @ 333.3 mls/hr IV Q12H [facility] Rx#: [id number] Oral 600 200 Output: Void Amount 1150 400 Other: Meal Dinner Percent of Meal Consumed 100% Exam: General: Alert, Awake, No acute Distress Eyes/N/T: EOMI, Head/Neck: neck supple, CV: RRR, 3/6 SM, Pulm: Fine bibasilar rales b/l, no wheezing Abd: soft, nontender, +BS x4 Ext: no clubbing/cyanosis/edema Neuro: Alert, no focal deficits, moves all extremities, Skin: warm/dry OBJ DATA Labs CBC & Chem 7: 08/15/21 05:36 08/15/21 05:36 Labs: Abnormal Lab Results 08/15/21 08/15/21 08/14/21 05:36 05:36 05:24 WBC RBC 3.15 L Hgb 10.1 L Hct 30.6 L Plt Count 112 L Neut % (Auto) Lymph % (Auto) 9.3 L Lymph # (Auto) 0.82 L [place] # (Auto) 1.06 H Seg Neutrophils % Lymphocytes % Absolute Neutrophils Platelet Estimate D-Dimer Glucose 113 H Phosphorus 2.3 L Magnesium 1.5 L 1.4 L AST 46 H 41 H Lactate Dehydrogenase 325 H 275 H NT-Pro-B Natriuret Pep Albumin 3.1 L Procalcitonin Urine Mucus 08/14/21 08/13/21 08/13/21 05:24 10:24 09:33 WBC 12.4 H RBC 3.17 L Hgb 10.2 L Hct 30.2 L Plt Count 125 L Neut % (Auto) Lymph % (Auto) Lymph # (Auto) [place] # (Auto) Seg Neutrophils % 93 H Lymphocytes % 5 L Absolute Neutrophils Platelet Estimate Decreased A D-Dimer Glucose Phosphorus Magnesium AST Lactate Dehydrogenase NT-Pro-B Natriuret Pep Albumin Procalcitonin 0.17 H Urine Mucus Few A 08/13/21 08/13/21 08/13/21 09:33 09:33 09:33 WBC RBC Hgb Hct Plt Count Neut % (Auto) Lymph % (Auto) Lymph # (Auto) [place] # (Auto) Seg Neutrophils % Lymphocytes % Absolute Neutrophils Platelet Estimate D-Dimer 1.79 H Glucose 166 H Phosphorus Magnesium AST Lactate Dehydrogenase NT-Pro-B Natriuret Pep 502.9 H Albumin Procalcitonin Urine Mucus 08/13/21 09:33 WBC 14.9 H RBC Hgb Hct Plt Count Neut % (Auto) 91.4 H Lymph % (Auto) 2.7 L Lymph # (Auto) 0.40 L [place] # (Auto) Seg Neutrophils % Lymphocytes % Absolute Neutrophils 13.65 H Platelet Estimate D-Dimer Glucose Phosphorus Magnesium AST Lactate Dehydrogenase NT-Pro-B Natriuret Pep Albumin Procalcitonin Urine Mucus Meds: Medications Acetaminophen (Acetaminophen 325 Mg Tablet) 650 mg PO Q6HP PRN; Protocol PRN Reason: Per Pain Protocol/Fever > 101 Albuterol/Ipratropium (Ipratropium/Albuterol 3 Ml Ampul.Neb) 3 ml NEB Q4HP PRN PRN Reason: Shortness Of Breath Amlodipine Besylate (Amlodipine 10 Mg Tablet) 10 mg PO DAILY [facility] Last Admin: 08/14/21 08:23 Dose: 10 mg Documented by: Atorvastatin Calcium (Atorvastatin 40 Mg Tablet) 40 mg PO QAM [facility] Last Admin: 08/14/21 08:22 Dose: 40 mg Documented by: Dextrose (Dextrose 50% 50 Ml Vial) 0 ml IV UD PRN PRN Reason: Hypoglycemia Diagnostic Test (Pha) (Accu-Chek 1 Each Strip) 1 each FS ACHS [facility] Last Admin: 08/14/21 20:01 Dose: 1 each Documented by: Docusate Sodium (Docusate Sodium 100 Mg Capsule) 100 mg PO BID [facility] Last Admin: 08/14/21 20:01 Dose: 100 mg Documented by: Enoxaparin Sodium (Enoxaparin 60 Mg/0.6 Ml Syringe) 60 mg SQ DAILY [facility] Last Admin: 08/14/21 08:22 Dose: 60 mg Documented by: Glipizide (Glipizide 5 Mg Tablet) 5 mg PO ACB [facility] Last Admin: 08/14/21 07:01 Dose: 5 mg Documented by: Glucose (Dextrose 31 Gm Oral.Susp) 15 gm PO PRN PRN PRN Reason: Hypoglycemia Potassium Chloride 40 meq/ (Dextrose) 520 mls @ 130 mls/hr IV UD PRN PRN Reason: Potassium < 3 Magnesium Sulfate (Magnesium Sulfate) 2 gm in 50 mls @ 50 mls/hr IV UD PRN PRN Reason: Magnesium </= 1.6 Vancomycin HCl 1,500 mg/ (Sodium Chloride) 500 mls @ 333.3 mls/hr IV Q12H [facility] Last Infusion: 08/14/21 23:17 Dose: Infused Documented by: Gentamicin Sulfate 210 mg/ (Sodium Chloride) 255.25 mls @ 255.25 mls/hr IV DAILY@1100 [facility] Last Infusion: 08/14/21 11:23 Dose: Infused Documented by: Insulin Glargine (Insulin Glargine, Human 1 Unit/0.01 Ml) 22 unit SQ HS [facility] Last Admin: 08/14/21 20:01 Dose: 22 units Documented by: Insulin Human Lispro (Insulin Lispro 1 Unit/0.01 Ml Unit) 0 unit SQ [facility]; Protocol Last Admin: 08/14/21 20:01 Dose: 6 units Documented by: Losartan Potassium (Losartan 50 Mg Tablet) 100 mg PO QAM [facility] Last Admin: 08/14/21 08:22 Dose: 100 mg Documented by: Metoclopramide HCl (Metoclopramide 10 Mg/2 Ml Vial) 10 mg IV Q6HP PRN PRN Reason: Nausea And Vomiting Ondansetron HCl (Ondansetron 4 Mg/2 Ml Vial) 4 mg IV Q4HP PRN PRN Reason: Nausea And Vomiting Oxybutynin Chloride (Oxybutynin Chloride 5 Mg Tab.Xl.24h) 15 mg PO DAILY [facility] Last Admin: 08/14/21 08:22 Dose: 15 mg Documented by: Polyethylene Glycol (Polyethylene Glycol 3350 17 Gm Packet) 17 gm PO DAILYP PRN PRN Reason: Constipation Potassium Chloride (Potassium Chloride 20 Meq Tablet) 40 meq PO UD PRN PRN Reason: Potssium is 3-3.5 Potassium Chloride (Potassium Chloride 20 Meq Tablet) 40 meq PO UD PRN PRN Reason: Potassium < 3 Senna (Sennosides 1 Tablet) 2 tab PO DAILYP PRN PRN Reason: Constipation Sertraline HCl (Sertraline 100 Mg Tablet) 100 mg PO DAILY [facility] Last Admin: 08/14/21 08:23 Dose: 100 mg Documented by: Sodium Chloride (0.9 % Sodium Chloride 10 Ml Syringe) 10 ml IV Q8 [facility] Last Admin: 08/15/21 04:40 Dose: 10 ml Documented by: Vancomycin HCl (Vancomycin Per Pharmacy) 1 order IV UD [facility]; Protocol A/P Narrative A/P Narrative: A: *Acute hypoxic respiratory failure: ?PNA vs diastolic chf -Imaging more consistent with pulm edema vs pna per rads, could be atypical PNA vs viral but not convincing (not much of a cough and no purulence, PCT/CRP low). BNP may be falsely low in obesity. Initially treated as PNA given the fever/leukocytosis/pulm infiltrates -echo with good LV fxn, diastolic dysfxn -on 1L NC *Bacteremia (MSSA): ?source pulm (not convincing) vs other -leukocytosis resolved -TTE no obvious vegetations but poor study per senior officer *??PNA (atypical vs viral) vs diastolic chf: see above -strep/RVP neg *h/o Aortic valve replacement 2016: *ARTEM w/cpap: *HTN/HLD: *Depression: *Hypomag: P: -Given her bioprosthetic valve status and blood cultures 4/4 bottles growing staph aureus, will empirically treat for endocarditis until imaging studies return and repeat BC's back. Thus, will include gentamicin to vancomycin. Rifampin is recommended to start 3-5 days later give high mutation rate of bacterial gene controlling site of action, in attempt to decrease bacterial burden prior to start. -did discuss with [facility] infectious disease physician who did recommend cefazolin 6-weeks irregardless of BBII results and low-dose gentamicin for 2-wks, and to add Rifampin for the 6wk course. Will set-up outpt BIBI. weekly labs while on IV abx -Vanco/Gentamicin/start Rifampin in several days, f/u surveillance BC's & PICC when negative -IS/Acapella, prn Nebs -O2 supp and wean as able -lasix again today -myco pending -Home CPAP -PT/OT -CM for SNF placement -ppx: Lovenox Full code Time Spent With Patient Time: Total time spent is greater than 50% in coordination of care (as documented) at patient's floor/unit and/or counseling patient: QUALITY VTE Deep Vein Thrombosis/Pulmonary Embolism Present on Admission: Yes
[2021-08-15] MEDS: glipiZIDE 5 MG TABLET PO SCH (07:28)
[2021-08-15] MEDS: ENOXAPARIN 60 MG/0.6 ML SYRINGE SQ SCH (08:58)
[2021-08-15] MEDS: OXYBUTYNIN CHLORIDE 5 MG TAB.XL.24H PO SCH (09:00)
[2021-08-15] MEDS: SERTRALINE 100 MG TABLET PO SCH (09:00)
[2021-08-15] MEDS: LOSARTAN 50 MG TABLET PO SCH (09:01)
[2021-08-15] MEDS: amLODIPine 10 MG TABLET PO SCH (09:01)
[2021-08-15] MEDS: NEUTRA PHOS 1 PACKET PO SCH ×2 (09:01→19:50)
[2021-08-15] MEDS: ATORVASTATIN 40 MG TABLET PO SCH (09:01)
[2021-08-15 09:47] LABS: Vancomycin,Trough 21.9 ug/mL
[2021-08-15] MEDS ORDERED: 0.9 % SODIUM CHLORIDE 10 ML SYRINGE IV PRN (10:28)
[2021-08-15] MEDS: VANCOMYCIN 1,500 MG in 0.9 % SODIUM CHLORIDE 500 ML IV SCH (11:03)
[2021-08-15] MEDS: ceFAZolin 1 GM VIAL IV SCH ×2 (16:26→22:00)
[2021-08-15] MEDS: INSULIN GLARGINE, HUMAN 1 UNIT/0.01 ML SQ SCH (20:13)
[2021-08-16] MEDS: ceFAZolin 1 GM VIAL IV SCH ×3 (05:45→21:56)
[2021-08-16 06:54] LABS: Basophils # (Auto) 0.04 K/mcL (0.00-0.30); Basophils % (Auto) 0.6 % (0.0-2.0); Eosinophils # (Auto) 0.51 K/mcL (0.00-0.70); Eosinophils % (Auto) 7.1 % (0.0-7.0); Hematocrit 31.6 % (34.1-44.9); Hemoglobin 10.5 g/dL (11.2-15.7); Lymphocytes # (Auto) 1.09 K/mcL (1.50-4.80); Lymphocytes % (Auto) 15.2 % (15.5-49.0); Mean Cell Volume 95.2 fL (80.0-100.0); Mean Corpuscular HGB Conc 33.2 g/dL (31.0-36.0); Mean Platelet Volume 10.2 fL (7.4-10.4); Monocytes % (Auto) 11.1 % (1.0-12.0); Platelet Count 134 K/mcL (140-440); RBC 3.32 M/mcL (3.59-5.38); WBC 7.2 K/mcL (4.5-11.0)
[2021-08-16 07:06] LABS: ALT/SGPT 30 U/L (<40); AST/SGOT 42 U/L (<32); Albumin 3.4 gm/dL (3.2-5.2); Albumin/Globulin Ratio 1.2 (1.0-2.3); Alkaline Phosphatase 73 U/L (39-117); Bilirubin,Total 0.5 mg/dL (0.1-1.0); Blood Urea Nitrogen 17 mg/dL (8-23); Calcium 9.5 mg/dL (8.6-10.4); Carbon Dioxide 24 mmol/L (22-30); Chloride 100 mmol/L (96-108); Globulin 2.8 gm/dL (2.2-3.7); Glomerular Filtration Rate 83; Glucose 97 mg/dL (70-105)
[2021-08-16] MEDS: INSULIN LISPRO 1 UNIT/0.01 ML UNIT SQ SCH ×4 (07:50→21:55)
[2021-08-16] MEDS: glipiZIDE 5 MG TABLET PO SCH (07:50)
[2021-08-16] MEDS: DOCUSATE SODIUM 100 MG CAPSULE PO SCH ×2 (09:10→21:55)
[2021-08-16] MEDS: SERTRALINE 100 MG TABLET PO SCH (09:11)
[2021-08-16] MEDS: amLODIPine 10 MG TABLET PO SCH (09:11)
[2021-08-16] MEDS: ATORVASTATIN 40 MG TABLET PO SCH (09:11)
[2021-08-16] MEDS: ENOXAPARIN 60 MG/0.6 ML SYRINGE SQ SCH (09:11)
[2021-08-16] MEDS: OXYBUTYNIN CHLORIDE 5 MG TAB.XL.24H PO SCH (09:12)
[2021-08-16] MEDS: LOSARTAN 50 MG TABLET PO SCH (09:12)
[2021-08-16] MEDS ORDERED: GENTAMICIN PER PHARMACY IV SCH (10:30)
[2021-08-16] MEDS: 0.9 % SODIUM CHLORIDE 10 ML SYRINGE IV SCH ×2 (11:28→21:56)
--- NOTE | 2021-08-16 11:36 | Internal Med Progress Note ---
SUBJECTIVE Subjective Patient information: Note initiated : 08/16/21 at 11:29 am Service Date, if different from initiated Date: [] Patient: Kandi Juares a 80 y/o F admitted on 08/13/21 for fever. Chief Complaint: [bacteremia] Interval history: History of present illness: Ms. Juares is a 80 year old F Presents to the hospital with fevers chills weakness shortness of breath. She was found to be satting in the mid 80s by EMS. Patient is on she started developing fevers and chills becoming more weak. She denies any cough but started to feel short of breath. She had some nausea and retching today. A granddaughter she was exposed to was recently found to have RSV infection. She has been vaccinated against Covid and has received a booster several weeks ago. 08/14 Patient states she is feeling much better today. All 4 bottles of blood cultures were positive for staph aureus. Vancomycin started. Echo pending. Source unknown, ?pulm. Very mild and very occasional dry cough. Shortness of breath much better Given her bioprosthetic valve status and blood cultures 4/4 bottles growing staph aureus, will empirically treat for endocarditis until imaging studies return and repeat BC's. Thus, will include gentamicin to vancomycin. Per research, rifampin is recommended to start 3-5 days later give high mutation rate of bacterial gene controlling site of action, in attempt to decrease bacterial burden prior to start. Will discuss with ID once final sensitivities return and TTE results return. 08/15 Feeling well. Yesterday's blood cultures with 1 out of 4 positive. Patient is afebrile. Verbal report from proposal engineer states transthoracic echo poor study but did not see any obvious vegetations or evidence of. Leukocytosis resolved. Mag level low today and will replace. Surveillance blood cultures. 08/16: Blood culture 08/13: MSSA all 4 bottles Blood culture 08/14: S aureus/ gram positive cocci in 1 bottle Blood culture 08/15: no growth to date. Low grade fever Tmax 37.5 overnight. c/o nonproductive cough. Denies sputum production or wheezing. Denies general body weakness. Denies GI upset such as nausea or vomiting. Constitutional Vitals: Vital Signs Temp Pulse Resp BP Pulse Ox 37.2 C 65 20 111/62 97 08/16/21 08:00 08/16/21 08:00 08/16/21 08:00 08/16/21 08:00 08/16/21 08:00 Period Temp Pulse Resp BP Sys/Mullins Pulse Ox Last 24 Hr 36.8 C-37.5 C 60-73 16-22 96-136/51-68 90-97 Intake and Output 08/15/21 08/16/21 08/16/21 21:59 05:59 13:59 Intake Total 1440 300 Output Total 1650 650 400 Balance -210 -350 -400 Weight 100.335 kg Intake & Output: Intake & Output 08/15/21 08/16/21 08/16/21 21:59 05:59 13:59 Intake Total 1440 300 Output Total 1650 650 400 Balance -210 -350 -400 Weight 100.335 kg Intake: Oral 1440 300 Output: Void Amount 1650 650 400 Other: Meal Dinner Percent of Meal Consumed 100% Feeding Ability Independent Urine Appearance Clear Urine Color Bright Yellow Straw Urine Odor Normal Normal General appearance: cooperative and no acute distress Head Head exam: Present atraumatic and normocephalic Eye Eye exam: Present EOMI and PERRL ENT ENT exam: Present mucous membranes moist, normal exam and normal external ear exam Neck Neck exam: Present normal inspection; Absent lymphadenopathy, tenderness and thyromegaly Respiratory Respiratory exam: Absent accessory muscle use, respiratory distress and wheezes Cardiovascular Cardiovascular exam: Present normal rate and rhythm; Absent JVD GI/Abdominal GI/Abdominal exam: Present normal bowel sounds and soft; Absent organomegaly and tenderness Extremities Exam Extremities exam: Present full ROM, normal capillary refill and normal inspection; Absent tenderness Neurological Exam Neurological exam: Present alert, CN II-XII intact and oriented X3; Absent motor sensory deficit Psychiatric Psychiatric exam: Present normal affect and normal mood; Absent anxious and depressed Skin Skin exam: Present dry and intact OBJ DATA Labs CBC & Chem 7: 08/16/21 05:35 08/16/21 05:35 Labs: Abnormal Lab Results 08/16/21 08/16/21 08/15/21 05:35 05:35 08:01 WBC RBC 3.32 L Hgb 10.5 L Hct 31.6 L Plt Count 134 L Lymph % (Auto) 15.2 L Eos % (Auto) 7.1 H Lymph # (Auto) 1.09 L Amador # (Auto) Seg Neutrophils % Lymphocytes % Platelet Estimate ESR D-Dimer Glucose Phosphorus Magnesium AST 42 H Lactate Dehydrogenase NT-Pro-B Natriuret Pep Albumin Procalcitonin Gentamicin Trough 1.3 H Vancomycin Trough 21.9 H* 08/15/21 08/15/21 08/15/21 05:36 05:36 05:36 WBC RBC 3.15 L Hgb 10.1 L Hct 30.6 L Plt Count 112 L Lymph % (Auto) 9.3 L Eos % (Auto) Lymph # (Auto) 0.82 L Amador # (Auto) 1.06 H Seg Neutrophils % Lymphocytes % Platelet Estimate ESR 24 H D-Dimer Glucose 113 H Phosphorus 2.3 L Magnesium 1.5 L AST 46 H Lactate Dehydrogenase 325 H NT-Pro-B Natriuret Pep Albumin 3.1 L Procalcitonin Gentamicin Trough Vancomycin Trough 08/14/21 08/14/21 08/13/21 05:24 05:24 09:33 WBC 12.4 H RBC 3.17 L Hgb 10.2 L Hct 30.2 L Plt Count 125 L Lymph % (Auto) Eos % (Auto) Lymph # (Auto) Amador # (Auto) Seg Neutrophils % 93 H Lymphocytes % 5 L Platelet Estimate Decreased A ESR D-Dimer Glucose Phosphorus Magnesium 1.4 L AST 41 H Lactate Dehydrogenase 275 H NT-Pro-B Natriuret Pep Albumin Procalcitonin 0.17 H Gentamicin Trough Vancomycin Trough 08/13/21 08/13/21 09:33 09:33 WBC RBC Hgb Hct Plt Count Lymph % (Auto) Eos % (Auto) Lymph # (Auto) Amador # (Auto) Seg Neutrophils % Lymphocytes % Platelet Estimate ESR D-Dimer 1.79 H Glucose Phosphorus Magnesium AST Lactate Dehydrogenase NT-Pro-B Natriuret Pep 502.9 H Albumin Procalcitonin Gentamicin Trough Vancomycin Trough Meds: Medications Acetaminophen (Acetaminophen 325 Mg Tablet) 650 mg PO Q6HP PRN; Protocol PRN Reason: Per Pain Protocol/Fever > 101 Albuterol/Ipratropium (Ipratropium/Albuterol 3 Ml Ampul.Neb) 3 ml NEB Q4HP PRN PRN Reason: Shortness Of Breath Amlodipine Besylate (Amlodipine 10 Mg Tablet) 10 mg PO DAILY [facility] Last Admin: 08/16/21 09:11 Dose: 10 mg Documented by: Atorvastatin Calcium (Atorvastatin 40 Mg Tablet) 40 mg PO QAM [facility] Last Admin: 08/16/21 09:11 Dose: 40 mg Documented by: Cefazolin Sodium (Cefazolin 1 Gm Vial) 2 gm IV Q8H [facility] Last Admin: 08/16/21 05:45 Dose: 2 gm Documented by: Dextrose (Dextrose 50% 50 Ml Vial) 0 ml IV UD PRN PRN Reason: Hypoglycemia Diagnostic Test (Pha) (Accu-Chek 1 Each Strip) 1 each FS [facility] Last Admin: 08/16/21 11:27 Dose: 1 each Documented by: Docusate Sodium (Docusate Sodium 100 Mg Capsule) 100 mg PO BID [facility] Last Admin: 08/16/21 09:10 Dose: 100 mg Documented by: Enoxaparin Sodium (Enoxaparin 60 Mg/0.6 Ml Syringe) 60 mg SQ DAILY [facility] Last Admin: 08/16/21 09:11 Dose: 60 mg Documented by: Gentamicin Sulfate (Gentamicin Per Pharmacy) 1 order IV UD [facility] Glipizide (Glipizide 5 Mg Tablet) 5 mg PO ACB [facility] Last Admin: 08/16/21 07:50 Dose: 5 mg Documented by: Glucose (Dextrose 31 Gm Oral.Susp) 15 gm PO PRN PRN PRN Reason: Hypoglycemia Heparin Sodium (Porcine) (Heparin Flush 10 Units/Ml 5 Ml Syringe) 2 ml IV Q12 [facility] Potassium Chloride 40 meq/ (Dextrose) 520 mls @ 130 mls/hr IV UD PRN PRN Reason: Potassium < 3 Magnesium Sulfate (Magnesium Sulfate) 2 gm in 50 mls @ 50 mls/hr IV UD PRN PRN Reason: Magnesium </= 1.6 Gentamicin Sulfate 175 mg/ (Sodium Chloride) 254.375 mls @ 250 mls/hr IV Q36H [facility] Insulin Glargine (Insulin Glargine, Human 1 Unit/0.01 Ml) 22 unit SQ HS [facility] Last Admin: 08/15/21 20:13 Dose: 22 units Documented by: Insulin Human Lispro (Insulin Lispro 1 Unit/0.01 Ml Unit) 0 unit SQ [facility]; Protocol Last Admin: 08/16/21 07:50 Dose: Not Given Documented by: Losartan Potassium (Losartan 50 Mg Tablet) 100 mg PO QAM [facility] Last Admin: 08/16/21 09:12 Dose: 100 mg Documented by: Metoclopramide HCl (Metoclopramide 10 Mg/2 Ml Vial) 10 mg IV Q6HP PRN PRN Reason: Nausea And Vomiting Ondansetron HCl (Ondansetron 4 Mg/2 Ml Vial) 4 mg IV Q4HP PRN PRN Reason: Nausea And Vomiting Oxybutynin Chloride (Oxybutynin Chloride 5 Mg Tab.Xl.24h) 15 mg PO DAILY [facility] Last Admin: 08/16/21 09:12 Dose: 15 mg Documented by: Polyethylene Glycol (Polyethylene Glycol 3350 17 Gm Packet) 17 gm PO DAILYP PRN PRN Reason: Constipation Potassium Chloride (Potassium Chloride 20 Meq Tablet) 40 meq PO UD PRN PRN Reason: Potssium is 3-3.5 Potassium Chloride (Potassium Chloride 20 Meq Tablet) 40 meq PO UD PRN PRN Reason: Potassium < 3 Rifampin (Rifampin 300 Mg Capsule) 300 mg PO Q8H [facility]; Protocol Senna (Sennosides 1 Tablet) 2 tab PO DAILYP PRN PRN Reason: Constipation Sertraline HCl (Sertraline 100 Mg Tablet) 100 mg PO DAILY [facility] Last Admin: 08/16/21 09:11 Dose: 100 mg Documented by: Sodium Chloride (0.9 % Sodium Chloride 10 Ml Syringe) 10 ml IV Q12 [facility] Last Admin: 08/16/21 11:28 Dose: 10 ml Documented by: Sodium Chloride (0.9 % Sodium Chloride 10 Ml Syringe) 10 ml IV UD PRN PRN Reason: FLUSH Sodium Chloride (0.9 % Sodium Chloride 10 Ml Syringe) 10 ml IV UD PRN PRN Reason: FLUSH A/P Assessment and plan (1) Diabetes mellitus, type II: Status: Chronic (2) MSSA bacteremia: Status: Acute (3) Hypertension, essential: Status: Chronic (4) Hyperlipidemia: Status: Chronic (5) Chronic depression: Status: Chronic (6) Anemia: Status: Chronic Narrative A/P Narrative: Assessment and Plans: 1. MSSA bacteremia: Stays in inpatient med surg Blood culture 08/13: MSSA all 4 bottles Blood culture 08/14: S aureus/ gram positive cocci in 1 bottle Blood culture 08/15: no growth to date. When last set of blood culture no growth in 48hr, will proceed with PICC line placement Rifampin 6 week Cefazolin 6 week Gentamicin 2 week cbc w/ auto diff in the AM to trend WBC 2. Essential HTN: Amlodipine Losartan 3. Dyslipidemia: Continue statin therapy 4. T2DM: HgA1c Glipizide Insulin Lantus 22 unit HS Correctional scale insulin AC HS Accu Chek AC HS Hypoglycemia protocol Diabetic diet 5. Depression: Sertraline 6. Anemia, normocytic normochromic: cbc w/ auto diff in the AM to trend H/H; transfuse pRBC if hemoglobin <7.0, active bleeding, or symptomatic GI ppx: not currently indicated DVT ppx: Lovenox Code status: Full Prognosis: guarded Disposition: inpatient med surg; PT OT for placement pending Time Spent With Patient Time: Total time spent is greater than 50% in coordination of care (as documented) at patient's floor/unit and/or counseling patient: Total time spent with greater than 50% in coordination of care (as documented) at patient's floor/unit and/or counseling patient:: Greater than 35 minutes QUALITY VTE Deep Vein Thrombosis/Pulmonary Embolism Present on Admission: Yes
[2021-08-16] MEDS: GENTAMICIN SULFATE IV SCH (12:37)
[2021-08-16] MEDS: SODIUM CHLORIDE 0.9% IV SCH (12:37)
[2021-08-16] MEDS: INSULIN GLARGINE, HUMAN 1 UNIT/0.01 ML SQ SCH (21:55)
[2021-08-17] MEDS: ceFAZolin 1 GM VIAL IV SCH ×3 (05:06→21:15)
[2021-08-17] MEDS ORDERED: 0.9 % SODIUM CHLORIDE 10 ML SYRINGE IV PRN ×3 (06:00→10:11)
[2021-08-17 06:55] LABS: Basophils # (Auto) 0.04 K/mcL (0.00-0.30); Basophils % (Auto) 0.6 % (0.0-2.0); Eosinophils # (Auto) 0.68 K/mcL (0.00-0.70); Hematocrit 29.8 % (34.1-44.9); Hemoglobin 10.1 g/dL (11.2-15.7); Lymphocytes # (Auto) 1.14 K/mcL (1.50-4.80); Lymphocytes % (Auto) 16.7 % (15.5-49.0); Mean Cell Volume 94.3 fL (80.0-100.0); Mean Corpuscular HGB Conc 33.9 g/dL (31.0-36.0); Mean Platelet Volume 10.4 fL (7.4-10.4); Monocytes # (Auto) 0.83 K/mcL (0.10-0.90); Monocytes % (Auto) 12.2 % (1.0-12.0); Neutrophils % (Auto) 60.5 % (38.0-78.0); Platelet Count 143 K/mcL (140-440); RBC 3.16 M/mcL (3.59-5.38); Red Cell Distribution Width 12.7 % (11.5-14.5); WBC 6.8 K/mcL (4.5-11.0)
[2021-08-17 07:29] LABS: ALT/SGPT 14 U/L (<40); AST/SGOT 28 U/L (<32); Albumin 3.3 gm/dL (3.2-5.2); Albumin/Globulin Ratio 1.2 (1.0-2.3); Alkaline Phosphatase 70 U/L (39-117); Bilirubin,Total 0.5 mg/dL (0.1-1.0); Blood Urea Nitrogen 17 mg/dL (8-23); Calcium 9.8 mg/dL (8.6-10.4); Carbon Dioxide 25 mmol/L (22-30); Chloride 99 mmol/L (96-108); Globulin 2.8 gm/dL (2.2-3.7); Glomerular Filtration Rate 83; Glucose 132 mg/dL (70-105)
[2021-08-17] MEDS: glipiZIDE 5 MG TABLET PO SCH (07:33)
[2021-08-17] MEDS: INSULIN LISPRO 1 UNIT/0.01 ML UNIT SQ SCH ×4 (07:36→21:15)
[2021-08-17] MEDS: ATORVASTATIN 40 MG TABLET PO SCH (11:06)
[2021-08-17] MEDS: SERTRALINE 100 MG TABLET PO SCH (11:07)
[2021-08-17] MEDS: OXYBUTYNIN CHLORIDE 5 MG TAB.XL.24H PO SCH (11:07)
[2021-08-17] MEDS: LOSARTAN 50 MG TABLET PO SCH (11:07)
[2021-08-17] MEDS: amLODIPine 10 MG TABLET PO SCH (11:07)
[2021-08-17] MEDS: RIFAMPIN 300 MG CAPSULE PO SCH ×2 (11:08→16:41)
[2021-08-17] MEDS: DOCUSATE SODIUM 100 MG CAPSULE PO SCH ×2 (11:10→21:01)
[2021-08-17] MEDS: ENOXAPARIN 40 MG/0.4 ML SYRINGE SQ SCH (11:10)
[2021-08-17] MEDS: 0.9 % SODIUM CHLORIDE 10 ML SYRINGE IV SCH ×2 (11:27→21:16)
--- NOTE | 2021-08-17 16:31 | Internal Med Progress Note ---
SUBJECTIVE Subjective Patient information: Note initiated : 08/17/21 at 4:29 pm Service Date, if different from initiated Date: [] Patient: Kandi Juares a 80 y/o F admitted on 08/13/21 for fever. Chief Complaint: [] Interval history: History of present illness: Ms. Juares is a 80 year old F Presents to the hospital with fevers chills weakness shortness of breath. She was found to be satting in the mid 80s by EMS. Patient is on she started developing fevers and chills becoming more weak. She denies any cough but started to feel short of breath. She had some nausea and retching today. A granddaughter she was exposed to was recently found to have RSV infection. She has been vaccinated against Covid and has received a booster several weeks ago. 08/14 Patient states she is feeling much better today. All 4 bottles of blood cul tures were positive for staph aureus. Vancomycin started. Echo pending. Source unknown, ?pulm. Very mild and very occasional dry cough. Shortness of breath much better Given her bioprosthetic valve status and blood cultures 4/4 bottles growing staph aureus, will empirically treat for endocarditis until imaging studies return and repeat BC's. Thus, will include gentamicin to vancomycin. Per research, rifampin is recommended to start 3-5 days later give high mutation rate of bacterial gene controlling site of action, in attempt to decrease bacterial burden prior to start. Will discuss with ID once final sensitivities return and TTE results return. 08/15 Feeling well. Yesterday's blood cultures with 1 out of 4 positive. Patient is afebrile. Verbal report from day porter states transthoracic echo poor study but did not see any obvious vegetations or evidence of. Leukocytosis resolved. Mag level low today and will replace. Surveillance blood cultures. 08/16: Blood culture 08/13: MSSA all 4 bottles Blood culture 08/14: S aureus/ gram positive cocci in 1 bottle Blood culture 08/15: no growth to date. Low grade fever Tmax 37.5 overnight. c/o nonproductive cough. Denies sputum production or wheezing. Denies general body weakness. Denies GI upset such as nausea or vomiting. 08/17: Blood culture from 08/15 no growth in 48 hours--> PICC line placement Afebrile overnight. Denies fever or chills or sweating. Denies any SOB. Denies any pain or discomfort Constitutional Vitals: Vital Signs Temp Pulse Resp BP Pulse Ox 37.0 C 57 L 20 128/65 91 08/17/21 12:00 08/17/21 12:00 08/17/21 12:00 08/17/21 12:00 08/17/21 14:25 Period Temp Pulse Resp BP Sys/Mullins Pulse Ox Last 24 Hr 36.8 C-37.3 C 57-74 18-22 128-169/65-78 90-96 Intake and Output 08/17/21 08/17/21 08/17/21 05:59 13:59 21:59 Intake Total 300 360 Output Total 700 600 Balance -400 -240 Intake & Output: Intake & Output 08/17/21 08/17/21 08/17/21 05:59 13:59 21:59 Intake Total 300 360 Output Total 700 600 Balance -400 -240 Intake: Oral 300 360 Output: Void Amount 700 600 Other: Meal Breakfast Percent of Meal Consumed 100% Feeding Ability Assist with Tray Set Up Urine Appearance Clear Urine Color Bright Yellow Straw Urine Odor Normal Stool Size Moderate Stool Color Brown Stool Consistency Soft # Bowel Movements 1 General appearance: cooperative and no acute distress Head Head exam: Present atraumatic and normocephalic Eye Eye exam: Present EOMI and PERRL ENT ENT exam: Present mucous membranes moist, normal exam and normal external ear exam Neck Neck exam: Present normal inspection; Absent lymphadenopathy, tenderness and thyromegaly Respiratory Respiratory exam: Absent accessory muscle use, respiratory distress and wheezes Cardiovascular Cardiovascular exam: Present normal rate and rhythm; Absent JVD GI/Abdominal GI/Abdominal exam: Present normal bowel sounds and soft; Absent organomegaly and tenderness Extremities Exam Extremities exam: Present full ROM, normal capillary refill and normal inspection; Absent tenderness Neurological Exam Neurological exam: Present alert, CN II-XII intact and oriented X3; Absent motor sensory deficit Psychiatric Psychiatric exam: Present normal affect and normal mood; Absent anxious and depressed Skin Skin exam: Present dry and intact OBJ DATA Labs CBC & Chem 7: 08/17/21 05:05 08/17/21 05:05 Labs: Abnormal Lab Results 08/17/21 08/17/21 08/16/21 05:05 05:05 05:35 RBC 3.16 L Hgb 10.1 L Hct 29.8 L Plt Count Lymph % (Auto) Blount % (Auto) 12.2 H Eos % (Auto) 10.0 H Lymph # (Auto) 1.14 L Blount # (Auto) ESR Glucose 132 H Phosphorus Magnesium AST 42 H Lactate Dehydrogenase Albumin Gentamicin Trough Vancomycin Trough 08/16/21 08/15/21 08/15/21 05:35 08:01 05:36 RBC 3.32 L Hgb 10.5 L Hct 31.6 L Plt Count 134 L Lymph % (Auto) 15.2 L Blount % (Auto) Eos % (Auto) 7.1 H Lymph # (Auto) 1.09 L Blount # (Auto) ESR 24 H Glucose Phosphorus Magnesium AST Lactate Dehydrogenase Albumin Gentamicin Trough 1.3 H Vancomycin Trough 21.9 H* 08/15/21 08/15/21 05:36 05:36 RBC 3.15 L Hgb 10.1 L Hct 30.6 L Plt Count 112 L Lymph % (Auto) 9.3 L Blount % (Auto) Eos % (Auto) Lymph # (Auto) 0.82 L Blount # (Auto) 1.06 H ESR Glucose 113 H Phosphorus 2.3 L Magnesium 1.5 L AST 46 H Lactate Dehydrogenase 325 H Albumin 3.1 L Gentamicin Trough Vancomycin Trough Meds: Medications Acetaminophen (Acetaminophen 325 Mg Tablet) 650 mg PO Q6HP PRN; Protocol PRN Reason: Per Pain Protocol/Fever > 101 Albuterol/Ipratropium (Ipratropium/Albuterol 3 Ml Ampul.Neb) 3 ml NEB Q4HP PRN PRN Reason: Shortness Of Breath Amlodipine Besylate (Amlodipine 10 Mg Tablet) 10 mg PO DAILY [facility] Last Admin: 08/17/21 11:07 Dose: 10 mg Documented by: Atorvastatin Calcium (Atorvastatin 40 Mg Tablet) 40 mg PO QAM [facility] Last Admin: 08/17/21 11:06 Dose: 40 mg Documented by: Cefazolin Sodium (Cefazolin 1 Gm Vial) 2 gm IV Q8H [facility] Last Admin: 08/17/21 13:16 Dose: 2 gm Documented by: Dextrose (Dextrose 50% 50 Ml Vial) 0 ml IV UD PRN PRN Reason: Hypoglycemia Diagnostic Test (Pha) (Accu-Chek 1 Each Strip) 1 each FS ACHS [facility] Last Admin: 08/17/21 11:55 Dose: 1 each Documented by: Docusate Sodium (Docusate Sodium 100 Mg Capsule) 100 mg PO BID [facility] Last Admin: 08/17/21 11:10 Dose: Not Given Documented by: Enoxaparin Sodium (Enoxaparin 40 Mg/0.4 Ml Syringe) 40 mg SQ DAILY [facility] Last Admin: 08/17/21 11:10 Dose: 40 mg Documented by: Gentamicin Sulfate (Gentamicin Per Pharmacy) 1 order IV UD [facility] Glipizide (Glipizide 5 Mg Tablet) 5 mg PO ACB [facility] Last Admin: 08/17/21 07:33 Dose: 5 mg Documented by: Glucose (Dextrose 31 Gm Oral.Susp) 15 gm PO PRN PRN PRN Reason: Hypoglycemia Heparin Sodium (Porcine) (Heparin Flush 10 Units/Ml 5 Ml Syringe) 2 ml IV Q12 [facility] Last Admin: 08/17/21 11:14 Dose: Not Given Documented by: Heparin Sodium (Porcine) (Heparin Flush 10 Units/Ml 5 Ml Syringe) 2 ml IV Q12 [facility] Potassium Chloride 40 meq/ (Dextrose) 520 mls @ 130 mls/hr IV UD PRN PRN Reason: Potassium < 3 Magnesium Sulfate (Magnesium Sulfate) 2 gm in 50 mls @ 50 mls/hr IV UD PRN PRN Reason: Magnesium </= 1.6 Gentamicin Sulfate 175 mg/ (Sodium Chloride) 254.375 mls @ 250 mls/hr IV Q36H [facility] Last Infusion: 08/16/21 13:45 Dose: Infused Documented by: Insulin Glargine (Insulin Glargine, Human 1 Unit/0.01 Ml) 22 unit SQ [facility] Last Admin: 08/16/21 21:55 Dose: 22 units Documented by: Insulin Human Lispro (Insulin Lispro 1 Unit/0.01 Ml Unit) 0 unit SQ [facility]; Protocol Last Admin: 08/17/21 11:58 Dose: 4 units Documented by: Losartan Potassium (Losartan 50 Mg Tablet) 100 mg PO QAM [facility] Last Admin: 08/17/21 11:07 Dose: 100 mg Documented by: Metoclopramide HCl (Metoclopramide 10 Mg/2 Ml Vial) 10 mg IV Q6HP PRN PRN Reason: Nausea And Vomiting Ondansetron HCl (Ondansetron 4 Mg/2 Ml Vial) 4 mg IV Q4HP PRN PRN Reason: Nausea And Vomiting Oxybutynin Chloride (Oxybutynin Chloride 5 Mg Tab.Xl.24h) 15 mg PO DAILY [facility] Last Admin: 08/17/21 11:07 Dose: 15 mg Documented by: Polyethylene Glycol (Polyethylene Glycol 3350 17 Gm Packet) 17 gm PO DAILYP PRN PRN Reason: Constipation Potassium Chloride (Potassium Chloride 20 Meq Tablet) 40 meq PO UD PRN PRN Reason: Potssium is 3-3.5 Potassium Chloride (Potassium Chloride 20 Meq Tablet) 40 meq PO UD PRN PRN Reason: Potassium < 3 Rifampin (Rifampin 300 Mg Capsule) 300 mg PO Q8H [facility]; Protocol Last Admin: 08/17/21 11:08 Dose: 300 mg Documented by: Senna (Sennosides 1 Tablet) 2 tab PO DAILYP PRN PRN Reason: Constipation Sertraline HCl (Sertraline 100 Mg Tablet) 100 mg PO DAILY [facility] Last Admin: 08/17/21 11:07 Dose: 100 mg Documented by: Sodium Chloride (0.9 % Sodium Chloride 10 Ml Syringe) 10 ml IV UD PRN PRN Reason: FLUSH Sodium Chloride (0.9 % Sodium Chloride 10 Ml Syringe) 10 ml IV UD PRN PRN Reason: FLUSH Sodium Chloride (0.9 % Sodium Chloride 10 Ml Syringe) 10 ml IV Q12 [facility] A/P Assessment and plan (1) Diabetes mellitus, type II: Status: Chronic (2) MSSA bacteremia: Status: Acute (3) Hypertension, essential: Status: Chronic (4) Hyperlipidemia: Status: Chronic (5) Chronic depression: Status: Chronic (6) Anemia: Status: Chronic Narrative A/P Narrative: Assessment and Plans: 1. MSSA bacteremia: Stays in inpatient med surg Blood culture 08/13: MSSA all 4 bottles Blood culture 08/14: S aureus/ gram positive cocci in 1 bottle Blood culture 08/15: no growth to date. PICC line insertion to be done Rifampin 6 week Cefazolin 6 week Gentamicin 2 week cbc w/ auto diff in the AM to trend WBC Need outpatient Infectious Disease f/u Need outpatient BIBI to rule out endocarditis 2. Essential HTN: Amlodipine Losartan 3. Dyslipidemia: Continue statin therapy 4. T2DM: HgA1c Glipizide Insulin Lantus 22 unit HS Correctional scale insulin AC HS Accu Chek AC HS Hypoglycemia protocol Diabetic diet 5. Depression: Sertraline 6. Anemia, normocytic normochromic: cbc w/ auto diff in the AM to trend H/H; transfuse pRBC if hemoglobin <7.0, active bleeding, or symptomatic GI ppx: not currently indicated DVT ppx: Lovenox Code status: Full Prognosis: stable Disposition: inpatient med surg; PT OT for placement pending Time Spent With Patient Time: Total time spent is greater than 50% in coordination of care (as documented) at patient's floor/unit and/or counseling patient: QUALITY VTE Deep Vein Thrombosis/Pulmonary Embolism Present on Admission: Yes
[2021-08-17] MEDS: INSULIN GLARGINE, HUMAN 1 UNIT/0.01 ML SQ SCH (21:15)
[2021-08-17] MEDS: SODIUM CHLORIDE 0.9% IV SCH (23:27)
[2021-08-17] MEDS: GENTAMICIN SULFATE IV SCH (23:27)
[2021-08-18] MEDS: RIFAMPIN 300 MG CAPSULE PO SCH ×2 (00:36→09:53)
[2021-08-18] MEDS: ceFAZolin 1 GM VIAL IV SCH (05:20)
[2021-08-18] MEDS: glipiZIDE 5 MG TABLET PO SCH (06:50)
[2021-08-18] MEDS: INSULIN LISPRO 1 UNIT/0.01 ML UNIT SQ SCH ×2 (06:54→11:47)
[2021-08-18 07:30] LABS: Basophils # (Auto) 0.04 K/mcL (0.00-0.30); Basophils % (Auto) 0.6 % (0.0-2.0); Eosinophils # (Auto) 0.65 K/mcL (0.00-0.70); Eosinophils % (Auto) 9.3 % (0.0-7.0); Hematocrit 30.5 % (34.1-44.9); Lymphocytes # (Auto) 1.49 K/mcL (1.50-4.80); Lymphocytes % (Auto) 21.3 % (15.5-49.0); Mean Cell Volume 94.1 fL (80.0-100.0); Mean Corpuscular HGB Conc 32.8 g/dL (31.0-36.0); Mean Platelet Volume 10.3 fL (7.4-10.4); Monocytes # (Auto) 0.95 K/mcL (0.10-0.90); Monocytes % (Auto) 13.6 % (1.0-12.0); Neutrophils % (Auto) 55.2 % (38.0-78.0); Platelet Count 152 K/mcL (140-440); RBC 3.24 M/mcL (3.59-5.38); Red Cell Distribution Width 12.8 % (11.5-14.5)
[2021-08-18 07:33] LABS: ALT/SGPT 11 U/L (<40); AST/SGOT 28 U/L (<32); Albumin 3.3 gm/dL (3.2-5.2); Albumin/Globulin Ratio 1.1 (1.0-2.3); Alkaline Phosphatase 73 U/L (39-117); Bilirubin,Total 0.8 mg/dL (0.1-1.0); Blood Urea Nitrogen 19 mg/dL (8-23); Calcium 9.9 mg/dL (8.6-10.4); Carbon Dioxide 25 mmol/L (22-30); Chloride 101 mmol/L (96-108); Globulin 2.9 gm/dL (2.2-3.7); Glomerular Filtration Rate 83; Glucose 120 mg/dL (70-105)
--- NOTE | 2021-08-18 09:01 | Discharge Summary ---
Discharge Provider Provider Patient information: Note initiated : 08/18/21 at 9:00 am Service Date, if different from initiated Date: [] Patient: Kandi Juares 80 y/o F admitted on 08/13/21 for fever. Chief Complaint: [bacteremia] Date of admission: 08/13/21 13:30 Discharge date: 08/18/21 Primary care physician: Jessy Ahn Consults: 08/13/21 11:25 Consult to Physician [CONS] Stat Comment: Consulting Provider: Coleman Enamorado Reason For Exam: Physician to Consult Discharge Meds Discharge Medications Home Medications meloxicam 7.5 mg tablet 7.5 mg PO BID PRN #60 tab 06/03/18 [Rx Confirmed 08/13/21 Last Taken Unknown] ascorbic acid (vitamin C) 1,000 mg tablet See Rx Instructions PO .COMPLEX 04/28/20 [History Confirmed 08/13/21 Last Taken Unknown] aspirin 81 mg tablet,delayed release See Rx Instructions PO .COMPLEX 04/28/20 [History Confirmed 08/13/21 Last Taken Unknown] biotin 5,000 mcg disintegrating tablet See Rx Instructions PO .COMPLEX 04/28/20 [History Confirmed 08/13/21 Last Taken Unknown] furosemide 40 mg tablet See Rx Instructions PO .COMPLEX 90 Days tab 04/28/20 [History Confirmed 08/13/21 Last Taken Unknown] glipizide 5 mg tablet See Rx Instructions PO .COMPLEX 90 Days tab 04/28/20 [History Confirmed 08/13/21 Last Taken Unknown] losartan 50 mg tablet 100 mg PO QAM 90 Days tab 04/28/20 [History Confirmed 08/13/21 Last Taken 08/12/21] metformin 1,000 mg tablet See Rx Instructions PO .COMPLEX 90 Days tab 04/28/20 [History Confirmed 08/13/21 Last Taken Unknown] multivitamin See Rx Instructions PO .COMPLEX 04/28/20 [History Confirmed 08/13/21 Last Taken Unknown] oxybutynin chloride 15 mg tablet,extended release 24 hr See Rx Instructions PO .COMPLEX 90 Days tab 04/28/20 [History Confirmed 08/13/21 Last Taken Unknown] sertraline 100 mg tablet See Rx Instructions PO .COMPLEX 90 Days tab 04/28/20 [History Confirmed 08/13/21 Last Taken Unknown] Lantus Solostar U-100 Insulin 22 unit INTRADERMAL QHS 08/13/21 [History Confirmed 08/13/21 Last Taken Unknown] amlodipine See Rx Instructions .ROUTE .COMPLEX 08/13/21 [History Confirmed 08/13/21 Last Taken Unknown] atorvastatin 40 mg PO QAM 08/13/21 [History Confirmed 08/13/21 Last Taken Unknown] cholecalciferol (vitamin D3) [Vitamin D3] 50 mcg PO QDAY 08/13/21 [History Confirmed 08/13/21 Last Taken Unknown] potassium chloride 20 meq PO WEEKLY 08/13/21 [History Confirmed 08/13/21 Last Taken Unknown] cefazolin 2 gm IV Q8H 42 Days ea 08/18/21 [Rx Last Taken Unknown] gentamicin in NaCl (iso-osm) 175 mg IV Q36H 14 Days #1749.998 ml 08/18/21 [Rx Last Taken Unknown] rifampin 300 mg PO Q8H 42 Days #126 cap 08/18/21 [Rx Last Taken Unknown] COURSE Hospital Course Hospital course: History of present illness: Ms. Juares is a 80 year old F Presents to the hospital with fevers chills weakness shortness of breath. She was found to be satting in the mid 80s by EMS. Patient is on she started developing fevers and chills becoming more weak. She denies any cough but started to feel short of breath. She had some nausea and retching today. A granddaughter she was exposed to was recently found to have RSV infection. She has been vaccinated against Covid and has received a booster several weeks ago. 08/14 Patient states she is feeling much better today. All 4 bottles of blood cultures were positive for staph aureus. Vancomycin started. Echo pending. Source unknown, ?pulm. Very mild and very occasional dry cough. Shortness of breath much better Given her bioprosthetic valve status and blood cultures 4/4 bottles growing staph aureus, will empirically treat for endocarditis until imaging studies return and repeat BC's. Thus, will include gentamicin to vancomycin. Per research, rifampin is recommended to start 3-5 days later give high mutation rate of bacterial gene controlling site of action, in attempt to decrease bacterial burden prior to start. Will discuss with ID once final sensitivities return and TTE results return. 08/15 Feeling well. Yesterday's blood cultures with 1 out of 4 positive. Patient is afebrile. Verbal report from panel lay up worker states transthoracic echo poor study but did not see any obvious vegetations or evidence of. Leukocytosis resolved. Mag level low today and will replace. Surveillance blood cultures. 08/16: Blood culture 08/13: MSSA all 4 bottles Blood culture 08/14: S aureus/ gram positive cocci in 1 bottle Blood culture 08/15: no growth to date. Low grade fever Tmax 37.5 overnight. c/o nonproductive cough. Denies sputum production or wheezing. Denies general body weakness. Denies GI upset such as nausea or vomiting. 08/17: Blood culture from 08/15 no growth in 48 hours--> PICC line placement Afebrile overnight. Denies fever or chills or sweating. Denies any SOB. Denies any pain or discomfort 08/18: PICC line placement attempted and failed. Discharged to SNF. Following items needed outpatient: PICC line placement BIBI Infectious disease specialist follow up appointment. Discharge diagnosis: MSSA bacteremia Time Spent with Patient Time attestation: Total time spent providing and/or coordinating discharge services: History of present illness: Ms. Juares is a 80 year old F Presents to the hospital with fevers chills weakness shortness of breath. She was found to be satting in the mid 80s by EMS. Patient is on she started developing fevers and chills becoming more weak. She denies any cough but started to feel short of breath. She had some nausea and retching today. A granddaughter she was exposed to was recently found to have RSV infection. She has been vaccinated against Covid and has received a booster several weeks ago. 08/14 Patient states she is feeling much better today. All 4 bottles of blood cultures were positive for staph aureus. Vancomycin started. Echo pending. Source unknown, ?pulm. Very mild and very occasional dry cough. Shortness of breath much better Given her bioprosthetic valve status and blood cultures 4/4 bottles growing staph aureus, will empirically treat for endocarditis until imaging studies return and repeat BC's. Thus, will include gentamicin to vancomycin. Per research, rifampin is recommended to start 3-5 days later give high mutation rate of bacterial gene controlling site of action, in attempt to decrease bacterial burden prior to start. Will discuss with ID once final sensitivities return and TTE results return. 08/15 Feeling well. Yesterday's blood cultures with 1 out of 4 positive. Patient is afebrile. Verbal report from panel lay up worker states transthoracic echo poor study but did not see any obvious vegetations or evidence of. Leukocytosis resolved. Mag level low today and will replace. Surveillance blood cultures. 08/16: Blood culture 08/13: MSSA all 4 bottles Blood culture 08/14: S aureus/ gram positive cocci in 1 bottle Blood culture 08/15: no growth to date. Low grade fever Tmax 37.5 overnight. c/o nonproductive cough. Denies sputum production or wheezing. Denies general body weakness. Denies GI upset such as nausea or vomiting. 08/17: Blood culture from 08/15 no growth in 48 hours--> PICC line placement Afebrile overnight. Denies fever or chills or sweating. Denies any SOB. Denies any pain or discomfort 08/18: PICC line placement attempted and failed. Discharged to SNF. Following items needed outpatient: PICC line placement BIBI Infectious disease specialist follow up appointment. EXAM Constitutional Vitals: Temp Pulse Resp BP Pulse Ox 36.3 C 60 18 124/59 93 08/18/21 07:06 08/18/21 07:06 08/18/21 07:06 08/18/21 07:06 08/18/21 07:06 General appearance: cooperative and no acute distress Head Head exam: Present atraumatic and normocephalic Eye Eye exam: Present EOMI and PERRL ENT ENT exam: Present mucous membranes moist, normal exam and normal external ear exam Neck Neck exam: Present normal inspection; Absent lymphadenopathy, tenderness and thyromegaly Respiratory Respiratory exam: Absent accessory muscle use, respiratory distress and wheezes Cardiovascular Cardiovascular exam: Present normal rate and rhythm; Absent JVD GI/Abdominal GI/Abdominal exam: Present normal bowel sounds and soft; Absent organomegaly and tenderness Extremities Exam Extremities exam: Present full ROM, normal capillary refill and normal inspection; Absent tenderness Neurological Exam Neurological exam: Present alert, CN II-XII intact and oriented X3; Absent motor sensory deficit Psychiatric Psychiatric exam: Present normal affect and normal mood; Absent anxious and depressed Skin Skin exam: Present dry and intact Discharge Data Data Completed and Pending Labs on day of discharge: Labs from last 24 hours 08/18/21 08/18/21 05:20 05:20 WBC 7.0 RBC 3.24 L Hgb 10.0 L Hct 30.5 L MCV 94.1 MCH 30.9 MCHC 32.8 RDW 12.8 Plt Count 152 MPV 10.3 Neut % (Auto) 55.2 Lymph % (Auto) 21.3 [place] % (Auto) 13.6 H Eos % (Auto) 9.3 H Baso % (Auto) 0.6 Lymph # (Auto) 1.49 L [place] # (Auto) 0.95 H Eos # (Auto) 0.65 Baso # (Auto) 0.04 Absolute Neutrophils 3.85 Sodium 136 Potassium 5.0 Chloride 101 Carbon Dioxide 25 Anion Gap 10.0 BUN 19 Creatinine 0.7 GFR Calculation 83 Glucose 120 H Calcium 9.9 Total Bilirubin 0.8 AST 28 ALT 11 Alkaline Phosphatase 73 Total Protein 6.2 Albumin 3.3 Globulin 2.9 Albumin/Globulin Ratio 1.1 Preliminary micro results at discharge 08/15/21 08:23 Blood Culture - Preliminary Blood 08/15/21 08:23 Blood Culture - Preliminary Blood 08/14/21 07:53 Blood Culture - Preliminary Blood 08/14/21 08:02 Blood Culture - Preliminary Blood Staphylococcus aureus Discharge Plan Patient/Caregiver Discharge Instructions Activity: increase activity as tolerated Diet: Consistent Carbohydrate Prescriptions: New cefazolin 1 gram Recon Soln 2 gm IV Q8H 42 Days RF: 0 rifampin 300 mg Capsule 300 mg PO Q8H 42 Days Qty: 126 RF: 0 gentamicin in NaCl (iso-osm) 100 mg/100 mL piggyback 175 mg IV Q36H 14 Days Qty: 1749.998 RF: 0 Continued meloxicam 7.5 mg tablet 7.5 mg PO BID PRN (Reason: pain) Qty: 60 RF: 3 aspirin 81 mg tablet,delayed release (DR/EC) See Rx Instructions PO .COMPLEX RF: 0 biotin 5,000 mcg tablet,disintegrating See Rx Instructions PO .COMPLEX RF: 0 ascorbic acid (vitamin C) 1,000 mg tablet See Rx Instructions PO .COMPLEX RF: 0 multivitamin Tablet See Rx Instructions PO .COMPLEX RF: 0 glipizide 5 mg tablet See Rx Instructions PO .COMPLEX 90 Days RF: 0 metformin 1,000 mg tablet See Rx Instructions PO .COMPLEX 90 Days RF: 0 oxybutynin chloride 15 mg tablet extended release 24hr See Rx Instructions PO .COMPLEX 90 Days RF: 0 sertraline 100 mg tablet See Rx Instructions PO .COMPLEX 90 Days RF: 0 losartan 50 mg tablet 100 mg PO QAM 90 Days RF: 0 furosemide 40 mg tablet See Rx Instructions PO .COMPLEX 90 Days RF: 0 Lantus Solostar U-100 Insulin 22 unit intradermal QHS RF: 0 amlodipine 10 mg tablet See Rx Instructions .ROUTE .COMPLEX RF: 0 atorvastatin 40 mg tablet 40 mg PO QAM RF: 0 potassium chloride 20 mEq Tablet Extended Release 20 meq PO WEEKLY RF: 0 cholecalciferol (vitamin D3) [Vitamin D3] 50 mcg (2,000 unit) Tablet 50 mcg PO QDAY RF: 0 Follow Up Plan Follow up with: Jessy Ahn MD [Primary Care Provider] - Patient Disposition: Xfer SNF Prognosis: Fair Rehab Potential: Good I certify that the patient requires SNF services: Yes Overall status at discharge: patient is progressing back to baseline Discharge Orders: Discharge Order (Routine); Ordered 08/18/21 Ordered By: Carlos WOODS VTE Deep Vein Thrombosis/Pulmonary Embolism Present on Admission: Yes
[2021-08-18] MEDS: DOCUSATE SODIUM 100 MG CAPSULE PO SCH (09:48)
[2021-08-18] MEDS: ATORVASTATIN 40 MG TABLET PO SCH (09:49)
[2021-08-18] MEDS: OXYBUTYNIN CHLORIDE 5 MG TAB.XL.24H PO SCH (09:49)
[2021-08-18] MEDS: SERTRALINE 100 MG TABLET PO SCH (09:49)
[2021-08-18] MEDS: LOSARTAN 50 MG TABLET PO SCH (09:49)
[2021-08-18] MEDS: amLODIPine 10 MG TABLET PO SCH (09:49)
[2021-08-18] MEDS: 0.9 % SODIUM CHLORIDE 10 ML SYRINGE IV SCH (09:54)
[2021-08-18] MEDS: ENOXAPARIN 40 MG/0.4 ML SYRINGE SQ SCH (09:56)
[2021-08-18 22:11] LABS: M. Pneumoniae IGG 2.5
== END 2021-08-18 12:25 | DRG 871 ==
LOC: ED 09:12 → MEDSUR 13:30
PROVIDERS: ADMIT Internal Medicine; ATTEND Internal Medicine